=== PATIENT | female | born 1950 | race African-American/Black ===

== ENCOUNTER → 2017-01-22 | Outpatient (CLI) | payer MEDICARE, OTHER ==
[~2017-01-22] MED LIST: AMLO5TAB2 PO; DOCU-94 PO; FER325T PO; FLU05NSL; HYDR12.56 PO; LISI40TA PO; PANT40TA2 PO
[2017-01-22 08:17] LABS: Basophils # (auto) 0 uL; Basophils % (auto) 0.6 % (0.0-2.0); DEFINITIVE VIEW TRANSMISSION; Eosinophils # (auto) 0 uL; Eosinophils % (auto) 0.9 % (0.0-7.0); Hematocrit 39.4 % (36.0-46.0); Hemoglobin 12.6 g/dL (12.2-16.2); Lymphocytes # (auto) 1.1 uL; Lymphocytes % (auto) 40.6 % (10.0-50.0); Mean Corpuscular Hemoglobin 23.4 pg (28.0-32.0); Mean Corpuscular Hgb Conc. 31.9 g/dL (32.0-36.0); Mean Corpuscular Volume 73.4 fL (80.0-100.0); Mean Platelet Volume 9.5 fL (7.4-10.4); Monocytes # (auto) 0.2 uL; Monocytes % (auto) 6.8 % (0.0-12.0); Neutrophils # (auto) 1.4 uL; Neutrophils % (auto) 51.1 % (37.0-80.0); Platelet Count (auto) 297 10^3/uL (140-450); SUSPECT VIEW TRANSMISSION; White Blood Cell 2.7 10^3/uL (4.4-10.8)
[2017-01-22 08:24] LABS: Red Cell Distribution Width 20.1 % (11.6-16.0)
[2017-01-22 08:26] LABS: Urine Bilirubin Negative (Negative); Urine Blood Negative /uL (Negative); Urine Color Yellow (Yellow); Urine Glucose Normal (Normal); Urine Ketone Negative (Negative); Urine Mucus FEW (None Seen); Urine Nitrite Negative (Negative); Urine RBC 1 /hpf (0 - 4); Urine Squamous Epithelial Cell FEW /hpf (<5); Urine Urobilinogen Normal (Negative)
[2017-01-22 08:53] LABS: Albumin 3.8 g/dL (3.4-5.0); BUN/Creatinine Ratio 27.3; Bilirubin, Total 0.4 mg/dL (0.2-1.0); Potassium 3.9 mmol/L (3.5-5.1); Total Protein 7.8 g/dL (6.4-8.2)
[2017-01-22 08:54] LABS: Platelet Estimate Adequate
[2017-01-22 08:55] LABS: Anisocytosis Slight; Hypochromia Moderate; Microcytosis Slight
== END | disposition home or self-care (01) ==
LOC: LAB 07:52
PROVIDERS: ATTEND Internal Medicine
DX: Z00.00 Encounter for general adult medical examination without abnormal findings (principal); I10 Essential (primary) hypertension; E78.5 Hyperlipidemia, unspecified; E55.9 Vitamin D deficiency, unspecified
CPT/HCPCS: 36415; 80053; 80061; 81001; 82306; 84439; 84443; 85025

== ENCOUNTER → 2017-08-27 | Outpatient (CLI) | payer MEDICARE, OTHER | END | disposition home or self-care (01) | LOC: LAB 07:36 | PROVIDERS: ATTEND Internal Medicine Rheumatology | DX: M15.0 Primary generalized (osteo)arthritis (principal); I10 Essential (primary) hypertension | CPT/HCPCS: 36415; 85652; 86141 ==

== ENCOUNTER → 2017-12-16 | Outpatient (CLI) | payer MEDICARE, OTHER ==
[2017-12-16 08:24] LABS: Basophils # (auto) 0 uL; Eosinophils # (auto) 0 uL; Lymphocytes # (auto) 1.2 uL; Monocytes # (auto) 0.2 uL; Neutrophils # (auto) 1.3 uL
[2017-12-16 08:26] LABS: Eosinophils % (auto) 1.1 % (0.0-7.0); Hematocrit 43.1 % (36.0-46.0); Hemoglobin 14.3 g/dL (12.2-16.2); Lymphocytes % (auto) 42.7 % (10.0-50.0); Mean Corpuscular Hemoglobin 26.3 pg (28.0-32.0); Mean Corpuscular Hgb Conc. 33.3 g/dL (32.0-36.0); Monocytes % (auto) 7.4 % (0.0-12.0); Neutrophils % (auto) 47.8 % (37.0-80.0); Nucleated Red Blood Cells % 0.1 %; Platelet Count (auto) 257 10^3/uL (140-450); Red Blood Cells 5.45 10^6/uL (4.0-5.20); Red Cell Distribution Width 18.7 % (11.8-14.3); White Blood Cell 2.8 10^3/uL (4.4-10.8)
[2017-12-16 08:59] LABS: Albumin 4.2 g/dL (3.4-5.0); BUN/Creatinine Ratio 23.4; Bilirubin, Total 0.5 mg/dL (0.2-1.0); Calcium 9.1 mg/dL (8.5-10.1); Magnesium 2.2 mg/dL (1.6-2.6); Potassium 4.6 mmol/L (3.5-5.1); Total Protein 8.2 g/dL (6.4-8.2)
== END | disposition home or self-care (01) ==
LOC: LAB 07:59
PROVIDERS: ATTEND Physician Assistant
DX: I10 Essential (primary) hypertension (principal); D64.9 Anemia, unspecified; K29.70 Gastritis, unspecified, without bleeding; K21.9 Gastro-esophageal reflux disease without esophagitis
CPT/HCPCS: 36415; 80053; 80061; 83735; 85025

== ENCOUNTER → 2019-03-06 | Outpatient (CLI) | payer MEDICARE, OTHER ==
[~2019-03-06] MED LIST changes: +AMLO5TAB13 PO; -AMLO5TAB2 PO
[2019-03-06 08:10] LABS: Basophils # (auto) 0 uL; Basophils % (auto) 0.4 % (0.0-2.0); Eosinophils # (auto) 0 uL; Eosinophils % (auto) 0.3 % (0.0-7.0); Hematocrit 42.9 % (36.0-46.0); Hemoglobin 13.9 g/dL (12.2-16.2); Lymphocytes # (auto) 1.6 uL; Lymphocytes % (auto) 39.2 % (10.0-50.0); Mean Corpuscular Hgb Conc. 32.4 g/dL (32.0-36.0); Mean Corpuscular Volume 83.3 fL (80.0-100.0); Monocytes # (auto) 0.3 uL; Monocytes % (auto) 6.9 % (0.0-12.0); Neutrophils # (auto) 2.1 uL; Neutrophils % (auto) 53.2 % (37.0-80.0); Nucleated Red Blood Cells % 0.2 %; Platelet Count (auto) 280 10^3/uL (140-450); Red Blood Cells 5.15 10^6/uL (4.0-5.20)
[2019-03-06 08:24] LABS: Red Cell Distribution Width 20.9 % (11.8-14.3)
[2019-03-06 08:25] LABS: Albumin 3.8 g/dL (3.4-5.0); Calcium 9.1 mg/dL (8.5-10.1); Magnesium 2.5 mg/dL (1.6-2.6)
[2019-03-06 08:29] LABS: BUN/Creatinine Ratio 20.3; Bilirubin, Total 0.4 mg/dL (0.2-1.0); Total Protein 7.1 g/dL (6.4-8.2)
== END | disposition home or self-care (01) ==
LOC: LAB 07:43
PROVIDERS: ATTEND Physician Assistant
DX: D64.9 Anemia, unspecified (principal); I10 Essential (primary) hypertension; M06.9 Rheumatoid arthritis, unspecified; E61.2 Magnesium deficiency
CPT/HCPCS: 36415; 80053; 80061; 83735; 85025

== ENCOUNTER → 2019-05-04 | Outpatient (CLI) | payer MEDICARE, OTHER ==
[~2019-05-04] MED LIST changes: -AMLO5TAB13 PO; +AMLO5TAB15 PO
== END | disposition home or self-care (01) ==
LOC: LAB 13:53
PROVIDERS: ATTEND Nurse Practitioner Family
DX: L02.91 Cutaneous abscess, unspecified (principal)
CPT/HCPCS: 87070

== ENCOUNTER → 2019-09-11 | Outpatient (CLI) | payer MEDICARE, OTHER ==
[~2019-09-11] MED LIST changes: +IBUP800T24 PO; +TRAM-297 PO
[2019-09-11 08:34] LABS: Basophils # (auto) 0 uL; Basophils % (auto) 1.9 % (0.0-2.0); Eosinophils # (auto) 0.1 uL; Eosinophils % (auto) 3.6 % (0.0-7.0); Hematocrit 39.7 % (36.0-46.0); Hemoglobin 13.1 g/dL (12.2-16.2); Lymphocytes # (auto) 1.2 uL; Lymphocytes % (auto) 47.9 % (10.0-50.0); Mean Corpuscular Hemoglobin 27.2 pg (28.0-32.0); Mean Corpuscular Hgb Conc. 33.1 g/dL (32.0-36.0); Mean Corpuscular Volume 82.2 fL (80.0-100.0); Monocytes # (auto) 0.2 uL; Monocytes % (auto) 6.5 % (0.0-12.0); Neutrophils % (auto) 40.1 % (37.0-80.0); Nucleated Red Blood Cells % 0.1 %; Platelet Count (auto) 294 10^3/uL (140-450); Red Blood Cells 4.83 10^6/uL (4.0-5.20); Red Cell Distribution Width 18.9 % (11.8-14.3); White Blood Cell 2.4 10^3/uL (4.4-10.8)
[2019-09-11 08:35] LABS: Urine Blood Negative /uL (Negative); Urine Specific Gravity 1.011 (1.001-1.035)
[2019-09-11 09:29] LABS: INR 1.01 (0.9-1.15); Partial Thromboplastin Time 28.4 sec (23.64-32.05)
[2019-09-11 09:33] LABS: Albumin 3.7 g/dL (3.4-5.0); BUN/Creatinine Ratio 21.7; Bilirubin, Total 0.5 mg/dL (0.2-1.0); Calcium 9.2 mg/dL (8.5-10.1); Total Protein 7.8 g/dL (6.4-8.2)
[2019-09-11 09:48] LABS: Potassium 2.9 mmol/L (3.5-5.1)
== END | disposition home or self-care (01) ==
LOC: LAB 08:22
PROVIDERS: ATTEND Physician Assistant
DX: Z01.818 Encounter for other preprocedural examination (principal); I10 Essential (primary) hypertension; R06.02 Shortness of breath; Z79.899 Other long term (current) drug therapy
CPT/HCPCS: 36415; 80053; 81003; 83036; 85025; 85610; 85730

== ENCOUNTER → 2020-02-06 | Outpatient (CLI) | payer MEDICARE, OTHER ==
[~2020-02-06] MED LIST changes: +AMLO10TA13 PO; +ASPI-498 PO; +DICL1GEL50 TD; -DOCU-94 PO; +DOCU100C8 PO; +FERR-7 PO; -FLU05NSL; +FOLI1TAB6 PO; +GOLI50SO IV; +LISI-646 PO; -LISI40TA PO; +LISI40TA11 PO; +METH2.5T PO; +PANT40T PO; +PREG50CA PO; +TIZA4CAP PO
[2020-02-06 07:54] LABS: Urine Bacteria None Seen /hpf (None Seen)
[2020-02-06 08:01] LABS: Basophils % (auto) 0.6 % (0.0-2.0); Eosinophils # (auto) 0 10 ^3/uL (0-0.8); Eosinophils % (auto) 0.5 % (0.0-7.0); Lymphocytes # (auto) 1.3 10 ^3/uL (0.4-5.4); Lymphocytes % (auto) 43.2 % (10.0-50.0); Monocytes # (auto) 0.2 10 ^3/uL (0-1.3); Monocytes % (auto) 8.1 % (0.0-12.0); Neutrophils # (auto) 1.4 10 ^3/uL (1.6-8.6); Neutrophils % (auto) 47.6 % (37.0-80.0); Nucleated Red Blood Cells % 0.2 %
[2020-02-06 08:02] LABS: Basophils # (auto) 0 10 ^3/uL (0-0.2); Hematocrit 41.2 % (36.0-46.0); Hemoglobin 13.2 g/dL (12.2-16.2); Mean Corpuscular Hemoglobin 26.8 pg (28.0-32.0); Mean Corpuscular Hgb Conc. 32.2 g/dL (32.0-36.0); Mean Corpuscular Volume 83.5 fL (80.0-100.0); Platelet Count (auto) 269 10^3/uL (140-450); Red Blood Cells 4.93 10^6/uL (4.0-5.20); Red Cell Distribution Width 19.6 % (11.8-14.3)
[2020-02-06 08:04] LABS: Anion Gap 2 (5-15); Blood Urea Nitrogen 15 mg/dL (7-18); Carbon Dioxide 28 mmol/L (21-32); Chloride 106 mmol/L (98-107); Glucose 104 mg/dL (74-106); Potassium 3.8 mmol/L (3.5-5.1); Sodium 136 mmol/L (136-145)
[2020-02-06 08:05] LABS: Alanine Aminotransferase 45 U/L (13-56); Albumin 3.9 g/dL (3.4-5.0); Alkaline Phosphatase 48 U/L (45-117); Aspartate Aminotransferase 28 U/L (15-37); BUN/Creatinine Ratio 21.7; Bilirubin, Total 0.5 mg/dL (0.2-1.0); Calcium 9.1 mg/dL (8.5-10.1); GFR African American 108 mL/min; GFR Non-African American 89 mL/min; Total Protein 7.7 g/dL (6.4-8.2)
[2020-02-06 08:08] LABS: INR 1.05 (0.9-1.15); Partial Thromboplastin Time 25.9 sec (23.64-32.05)
[2020-02-06 08:10] LABS: Urine Specific Gravity 1.023 (1.001-1.035); Urine WBC 1 /hpf (0 - 5)
[2020-02-06 08:11] LABS: Urine Mucus FEW (None Seen)
[2020-02-06 08:12] LABS: Urine Blood Negative /uL (Negative)
== END | disposition home or self-care (01) ==
LOC: LAB 07:46
PROVIDERS: ATTEND Physician Assistant
DX: Z01.818 Encounter for other preprocedural examination (principal); Z79.899 Other long term (current) drug therapy
CPT/HCPCS: 36415; 80053; 81001; 83036; 85025; 85610; 85730

== ENCOUNTER → 2020-02-14 | Outpatient (CLI) | payer MEDICARE, OTHER ==
[~2020-02-14] MED LIST changes: -AMLO10TA13 PO; -ASPI-498 PO; -DICL1GEL50 TD; -DOCU100C8 PO; -FERR-7 PO; -FOLI1TAB6 PO; -GOLI50SO IV; -LISI-646 PO; +LISI40TA PO; -LISI40TA11 PO; -PANT40T PO; -PREG50CA PO; -TIZA4CAP PO
== END | disposition home or self-care (01) ==
LOC: LAB 11:21
PROVIDERS: ATTEND Physician Assistant
DX: Z01.818 Encounter for other preprocedural examination (principal); Z79.899 Other long term (current) drug therapy
CPT/HCPCS: 87081; 87086

== ENCOUNTER → 2020-02-26 | Outpatient (CLI) | payer MEDICARE, BC ==
[~2020-02-26] MED LIST changes: +AMLO10TA13 PO; +ASPI-498 PO; +DICL1GEL50 TD; +DOCU100C8 PO; +FERR-7 PO; +FOLI1TAB6 PO; +GOLI50SO IV; +LISI-646 PO; -LISI40TA PO; +LISI40TA11 PO; +PANT40T PO; +PREG50CA PO; +TIZA4CAP PO
== END | disposition home or self-care (01) ==
LOC: Rad HDHVI 15:59
PROVIDERS: ATTEND Internal Medicine Cardiovascular Disease
DX: I10 Essential (primary) hypertension (principal); R06.02 Shortness of breath
CPT/HCPCS: 93306

== ENCOUNTER → 2020-03-07 | Outpatient (CLI) | payer MEDICARE, BC ==
[~2020-03-07] VITALS: Ht 160 cm; Wt 54.0 kg
[~2020-03-07] MED LIST changes: +ADENOSINE 45 MG in GIVE UN-DILUTED 0 ML IV ONE; +ADENOSINE 90 MG/30 ML INJ IV ONE; -AMLO10TA13 PO; -ASPI-498 PO; -DICL1GEL50 TD; -DOCU100C8 PO; -FERR-7 PO; -FOLI1TAB6 PO; -GOLI50SO IV; -LISI-646 PO; +LISI40TA PO; -LISI40TA11 PO; -METH2.5T PO; +METH2.5T3 PO; -PANT40T PO; -PREG50CA PO; -TIZA4CAP PO
== END | disposition home or self-care (01) ==
LOC: Rad HDHVI 08:40
PROVIDERS: ATTEND Internal Medicine Cardiovascular Disease
DX: Z01.810 Encounter for preprocedural cardiovascular examination (principal); I10 Essential (primary) hypertension; R94.31 Abnormal electrocardiogram [ECG] [EKG]; Z82.49 Family history of ischemic heart disease and other diseases of the circulatory system
CPT/HCPCS: 78452; 93005; 96374; 96375; A9500; J0153

== ENCOUNTER 2020-05-13 12:30 | Inpatient (IN) | payer MEDICARE, BC ==
[~2020-05-13] VITALS: Ht 162.6 cm; Wt 55.6 kg
[~2020-05-13 12:30] MED LIST changes: -ADENOSINE 45 MG in GIVE UN-DILUTED 0 ML IV ONE; -ADENOSINE 90 MG/30 ML INJ IV ONE; -LISI40TA PO; +LISI40TA11 PO; +METH2.5T PO; -METH2.5T3 PO
[2020-05-13] MEDS ORDERED: SODIUM CHLORIDE 0.9% 1,000 ML IV ONE (12:38)
[2020-05-13] MEDS ORDERED: IOHEXOL 350 MG/ML 100ML IJ ONE (12:47)
[2020-05-13 13:06] LABS: Basophils # (auto) 0 10 ^3/uL (0-0.2); Eosinophils # (auto) 0 10 ^3/uL (0-0.8); Lymphocytes # (auto) 0.8 10 ^3/uL (0.4-5.4); Monocytes # (auto) 0.2 10 ^3/uL (0-1.3); Neutrophils % (auto) 75.3 % (37.0-80.0)
[2020-05-13 13:08] LABS: Eosinophils % (auto) 0.7 % (0.0-7.0); Hematocrit 19.9 % (36.0-46.0); Lymphocytes % (auto) 19.2 % (10.0-50.0); Mean Corpuscular Hemoglobin 27.9 pg (28.0-32.0); Mean Corpuscular Hgb Conc. 30.8 g/dL (32.0-36.0); Mean Corpuscular Volume 90.5 fL (80.0-100.0); Monocytes % (auto) 3.8 % (0.0-12.0); Neutrophils # (auto) 3.1 10 ^3/uL (1.6-8.6); Nucleated Red Blood Cells % 0.3 %; Platelet Count (auto) 374 10^3/uL (140-450); White Blood Cell 4.1 10^3/uL (4.4-10.8)
[2020-05-13 13:13] LABS: Hemoglobin 6.1 g/dL (12.2-16.2); Red Cell Distribution Width 21.5 % (11.8-14.3)
[2020-05-13 13:23] LABS: Alanine Aminotransferase 43 U/L (13-56); Albumin 3.1 g/dL (3.4-5.0); Anion Gap 6 (5-15); Aspartate Aminotransferase 19 U/L (15-37); BUN/Creatinine Ratio 14.8; Blood Urea Nitrogen 17 mg/dL (7-18); Calcium 8.4 mg/dL (8.5-10.1); Carbon Dioxide 24 mmol/L (21-32); Chloride 110 mmol/L (98-107); GFR African American 60 mL/min; GFR Non-African American 49 mL/min; Glucose 140 mg/dL (74-106); Potassium 3.7 mmol/L (3.5-5.1); Sodium 140 mmol/L (136-145)
[2020-05-13 13:27] LABS: Alkaline Phosphatase 52 U/L (45-117); Bilirubin, Total 0.3 mg/dL (0.2-1.0); Total Protein 6.6 g/dL (6.4-8.2)
[2020-05-13] MEDS ORDERED: ACETAMINOPHEN 325 MG TAB PO PRN (15:30)
[2020-05-13] MEDS ORDERED: ONDANSETRON HCL 4 MG/2 ML VIAL IV PRN (15:30)
[2020-05-13] MEDS ORDERED: LORazepam 0.5 MG TAB PO PRN (15:30)
[2020-05-13] MEDS ORDERED: MORPHINE SULF INJ 2 MG/ML SYRINGE 1ML IV PRN ×2 (15:30)
[2020-05-13] MEDS ORDERED: LISINOPRIL 10 MG TAB PO ONE (15:30)
[2020-05-13] MEDS ORDERED: ALUM & MAG HYDROX-SIMETH LIQ(MAALOX) 30 ML PO PRN (15:30)
[2020-05-13] MEDS ORDERED: DOCUSATE SOD 100 MG CAP PO PRN (15:30)
[2020-05-13] MEDS ORDERED: hydrALAZINE HCL 20 MG/ML VL IV PRN (15:30)
[2020-05-13] MEDS ORDERED: NITROGLYCERIN 0.4 MG SL TAB SL PRN (15:30)
[2020-05-13] MEDS: SODIUM CHLORIDE 0.9% 1,000 ML IV SCH (15:44)
[2020-05-13 16:48] LABS: % Iron Saturation 5.4 % (15-50)
[2020-05-13] MEDS: FERROUS SULFATE 325 MG TAB PO SCH (17:05)
[2020-05-13 18:11] LABS: Urine Bacteria NONE SEEN /hpf (None Seen); Urine Blood Negative /uL (Negative); Urine Mucus FEW (None Seen); Urine WBC 6 /hpf (0 - 5)
[2020-05-13 18:17] LABS: Urine Specific Gravity > 1.050 (1.001-1.035)
[2020-05-13 18:23] LABS: Alcohol, Urine < 3.0 mg/dL (0-10); Amphetamine Screen, Urine NEGATIVE (NEGATIVE); Barbiturate Scree,Urine NEGATIVE (NEGATIVE); Benzodiazephine Screen, Urine NEGATIVE (NEGATIVE); Cannabinoid Screen, Urine NEGATIVE (NEGATIVE); Cocaine Screen, Urine NEGATIVE (NEGATIVE); Opiate Scree,Urine NEGATIVE (NEGATIVE); Phencyclidine Screen, Urine NEGATIVE (NEGATIVE)
[2020-05-13] MEDS ORDERED: cefTRIAXone 1GM/50ML D5W 50 ML IV ONE (18:45)
[2020-05-13] MEDS ORDERED: SODIUM FERR GLUC 62.5MG/5ML 125 MG in SODIUM CHL 0.9% 100 ML IV ONE (18:45)
[2020-05-13] MEDS ORDERED: LISI-646 PO (19:17)
[2020-05-13] MEDS ORDERED: FOLI1TAB6 PO (19:17)
[2020-05-13] MEDS ORDERED: AMLO10TA13 PO (19:17)
[2020-05-13] MEDS ORDERED: PREG50CA PO (19:19)
[2020-05-13] MEDS ORDERED: TIZA4CAP PO (19:19)
[2020-05-13] MEDS ORDERED: GOLI50SO IV (19:19)
[2020-05-13] MEDS ORDERED: ASPI-498 PO (19:19)
[2020-05-13] MEDS ORDERED: DICL1GEL50 TD (19:24)
[2020-05-13] MEDS ORDERED: DOCU100C8 PO (19:24)
--- NOTE | 2020-05-13 20:55 | NUR ---
Telemetry admit from ER ROSALIESTEVENLUANA admitted to Telemetry unit. Patient oriented to SWATHI ORANTES, primary RN, unit, room, bed, and unit policies regarding patient care and visiting hours. Patient now on continuous telemetry monitoring, tele box # [id number] and telemetry reading on arrival to unit is NSR 79 . Patient weighed by bed scale and encouraged to call if they need something. All questions and concerns addressed, patient verbalized understanding.
[2020-05-13 21:45] VITALS: BP 130/56
--- NOTE | 2020-05-13 21:57 | NUR ---
Blood transfusion started.
[2020-05-13 22:00] VITALS: BP 130/56
[2020-05-13 22:27] VITALS: BP 128/55
[2020-05-13] MEDS: GABAPENTIN 300 MG CAP PO SCH (22:38)
[2020-05-13] MEDS: PANTOPRAZOLE 40 MG TAB PO SCH (22:38)
[2020-05-14 01:03] VITALS: BP 130/67
[2020-05-14 05:00] VITALS: BP 115/54
[2020-05-14] MEDS: GABAPENTIN 300 MG CAP PO SCH ×3 (05:58→21:34)
[2020-05-14 07:08] LABS: Hemoglobin 7.7 g/dL (12.2-16.2)
[2020-05-14 07:12] LABS: Hematocrit 23.5 % (36.0-46.0)
--- NOTE | 2020-05-14 07:15 | NUR ---
Opening shift note Assumed care patient sleeping in bed. Respirations even and unlabored currently on room air. Bed in low position, locked, call light within reach.
[2020-05-14 09:00] VITALS: BP 130/62
[2020-05-14] MEDS: predniSONE 5 MG TAB PO SCH (09:32)
[2020-05-14] MEDS: FERROUS SULFATE 325 MG TAB PO SCH (09:32)
[2020-05-14] MEDS: LISINOPRIL 10 MG TAB PO SCH (09:33)
[2020-05-14] MEDS: amLODIPine BESYLATE 5 MG TAB PO SCH (09:33)
[2020-05-14] MEDS: PANTOPRAZOLE 40 MG TAB PO SCH ×2 (09:33→21:34)
[2020-05-14] MEDS: SODIUM CHLORIDE 0.9% 1,000 ML IV SCH (09:34)
[2020-05-14] MEDS ORDERED: PANTOPRAZOLE 40 MG TAB PO SCH (10:00)
[2020-05-14] MEDS ORDERED: LACTULOSE 20Gm/30ML SOLN PO PRN (10:30)
[2020-05-14] MEDS: SODIUM FERR GLUC 62.5MG/5ML 125 MG in SODIUM CHL 0.9% 100 ML IV SCH (12:00)
[2020-05-14] MEDS ORDERED: IRON SUCROSE COMPLEX 200 MG in SODIUM CHL 0.9% 100 ML IV SCH (12:00)
--- NOTE | 2020-05-14 12:20 | NUR ---
Missed medication Patient refusing scheduled 1200 Ferrlecit at this time as patient states it made her "sick to her stomach" when she had received it previously. Patient educated on benefits of medication, patient continues to refuse and states she will let me know if she changes her mind.
[2020-05-14 13:00] VITALS: BP 124/67
[2020-05-14 14:35] LABS: INR 1.05 (0.9-1.15); Partial Thromboplastin Time 22.9 sec (23.0-31.2)
[2020-05-14 17:00] VITALS: BP 127/63
--- NOTE | 2020-05-14 18:00 | NUR ---
Covid swab collected at this time.
--- NOTE | 2020-05-14 19:13 | NUR ---
Closing shift note/ endorse Pending signature of consents for EGD that will be performed on 05/15/20. Procedure explained to patient by Dr. King at bedside. Will endorse obtaining signature of consents and checlist to [facility] nurse Arevalo.
[2020-05-14] MEDS ORDERED: cefTRIAXone 1GM/50ML D5W 50 ML IV SCH (21:00)
--- NOTE | 2020-05-14 21:43 | NUR ---
[place] 5/325 i po given for sheyla moderate pain in medial L knee. Pt kept hinting she wanted tramadol or another medication, but took this med.
[2020-05-14] MEDS: HYDROcodone-ACET 5/325MG TAB PO PRN (21:46)
[2020-05-14 22:18] VITALS: BP 118/58
[2020-05-15 04:57] VITALS: BP 121/60
[2020-05-15] MEDS: GABAPENTIN 300 MG CAP PO SCH ×2 (05:39→14:34)
[2020-05-15 05:40] LABS: Basophils # (auto) 0 10 ^3/uL (0-0.2); Eosinophils # (auto) 0.1 10 ^3/uL (0-0.8); Hematocrit 22.9 % (36.0-46.0); Hemoglobin 7.5 g/dL (12.2-16.2); Mean Corpuscular Hemoglobin 29.3 pg (28.0-32.0); Mean Corpuscular Volume 90.1 fL (80.0-100.0); Monocytes # (auto) 0.3 10 ^3/uL (0-1.3); White Blood Cell 5.5 10^3/uL (4.4-10.8)
[2020-05-15 05:42] LABS: Basophils % (auto) 0.5 % (0.0-2.0); Eosinophils % (auto) 2.1 % (0.0-7.0); Lymphocytes # (auto) 1.2 10 ^3/uL (0.4-5.4); Lymphocytes % (auto) 22.3 % (10.0-50.0); Mean Corpuscular Hgb Conc. 32.6 g/dL (32.0-36.0); Monocytes % (auto) 5.4 % (0.0-12.0); Neutrophils # (auto) 3.9 10 ^3/uL (1.6-8.6); Neutrophils % (auto) 69.7 % (37.0-80.0); Nucleated Red Blood Cells % 1.3 %; Platelet Count (auto) 318 10^3/uL (140-450); Red Blood Cells 2.54 10^6/uL (4.0-5.20)
[2020-05-15 05:59] LABS: Potassium 3.8 mmol/L (3.5-5.1)
[2020-05-15 06:04] LABS: BUN/Creatinine Ratio 23.9; Calcium 8.1 mg/dL (8.5-10.1)
[2020-05-15] MEDS ORDERED: SODIUM CHLORIDE LOCK 10 ML ONE (09:08)
[2020-05-15] MEDS ORDERED: diphenhdrAMINE HCL 50 MG/1 ML VL ONE (09:09)
[2020-05-15] MEDS ORDERED: LIDOCAINE VISCOUS 2% 15ML UD ONE (09:09)
[2020-05-15 09:30] VITALS: BP 128/63
[2020-05-15] MEDS: MIDAZOLAM HCL 5 MG/ML-1ML VIAL ONE ×2 (09:47→09:51)
[2020-05-15] MEDS: fentaNYL CITRATE 100 MCG/2 ML VL ONE (09:47)
[2020-05-15] MEDS: amLODIPine BESYLATE 5 MG TAB PO SCH (10:00)
[2020-05-15] MEDS: PANTOPRAZOLE 40 MG TAB PO SCH (10:00)
[2020-05-15] MEDS: LISINOPRIL 10 MG TAB PO SCH (10:00)
[2020-05-15 13:00] VITALS: BP 128/59
[2020-05-15] MEDS: HYDROcodone-ACET 5/325MG TAB PO PRN (14:34)
[2020-05-15] MEDS: predniSONE 5 MG TAB PO SCH (14:34)
[2020-05-15] MEDS: SODIUM FERR GLUC 62.5MG/5ML 125 MG in SODIUM CHL 0.9% 100 ML IV SCH (15:24)
[2020-05-15] MEDS ORDERED: PANT40T PO (15:25)
[2020-05-15] MEDS ORDERED: FERR-7 PO (15:25)
[2020-05-15 15:47] VITALS: BP 130/62
[2020-05-16] MEDS: fentaNYL CITRATE 100 MCG/2 ML VL ONE (09:51)
[2020-05-17] MEDS ORDERED: METHOTREXATE 2.5 MG TAB PO SCH ×2 (08:00→18:00)
== END 2020-05-15 16:35 | disposition home or self-care (01) | DRG 378 ==
LOC: EDBD 12:30 → ER 12:30 → TELE 12:31 → TELE-WESTW 20:55
PROVIDERS: ADMIT Hospitalist; ATTEND Internal Medicine Nephrology
PROC: 30233N1 Transfusion of Nonautologous Red Blood Cells into Peripheral Vein, Percutaneous Approach (ICD-10-PCS; principal; 2020-05-13)
PROC: 0DB68ZX Excision of Stomach, Via Natural or Artificial Opening Endoscopic, Diagnostic (ICD-10-PCS; 2020-05-15)
DX: K25.4 Chronic or unspecified gastric ulcer with hemorrhage (principal); D62 Acute posthemorrhagic anemia; E44.0 Moderate protein-calorie malnutrition; Z68.1 Body mass index [BMI] 19.9 or less, adult; M06.9 Rheumatoid arthritis, unspecified; M85.80 Other specified disorders of bone density and structure, unspecified site; G62.9 Polyneuropathy, unspecified; I10 Essential (primary) hypertension; K44.9 Diaphragmatic hernia without obstruction or gangrene; F41.9 Anxiety disorder, unspecified; D50.9 Iron deficiency anemia, unspecified; M19.90 Unspecified osteoarthritis, unspecified site; K31.4 Gastric diverticulum; Z96.659 Presence of unspecified artificial knee joint; Z20.828 Contact with and (suspected) exposure to other viral communicable diseases
CPT/HCPCS: 36415; 43239; 71275; 80048; 80053; 80061; 80307; 81001; 83036; 83540; 83550; 83880; 84484; 85014; 85018; 85025; 85379; 85610; 85730; 86850; 86900; 86901; 86920; 87040; 87086; 87426; 97163; G0378; J0696; J2250

== ENCOUNTER → 2020-05-30 | Outpatient (CLI) | payer MEDICARE, BC ==
[~2020-05-30] MED LIST changes: +AMLO10TA13 PO; -AMLO5TAB15 PO; +DICL1GEL50 TD; +DOCU100C8 PO; -FER325T PO; +FERR-7 PO; +FOLI1TAB6 PO; +GOLI50SO IV; -IBUP800T24 PO; +LISI-646 PO; -LISI40TA11 PO; +PANT40T PO; -PANT40TA2 PO; +PREG50CA PO; +TIZA4CAP PO
[2020-05-30 11:15] LABS: Basophils # (auto) 0 10 ^3/uL (0-0.2); Basophils % (auto) 1.1 % (0.0-2.0); Eosinophils # (auto) 0 10 ^3/uL (0-0.8); Eosinophils % (auto) 0.8 % (0.0-7.0); Hematocrit 34.7 % (36.0-46.0); Lymphocytes # (auto) 0.8 10 ^3/uL (0.4-5.4); Lymphocytes % (auto) 26.6 % (10.0-50.0); Mean Corpuscular Hemoglobin 28.1 pg (28.0-32.0); Mean Corpuscular Hgb Conc. 31.8 g/dL (32.0-36.0); Mean Corpuscular Volume 88.4 fL (80.0-100.0); Monocytes # (auto) 0.2 10 ^3/uL (0-1.3); Monocytes % (auto) 6.6 % (0.0-12.0); Neutrophils % (auto) 64.9 % (37.0-80.0); Nucleated Red Blood Cells % 0.1 %; Platelet Count (auto) 322 10^3/uL (140-450); Red Blood Cells 3.92 10^6/uL (4.0-5.20); Red Cell Distribution Width 19.1 % (11.8-14.3); White Blood Cell 3.1 10^3/uL (4.4-10.8)
[2020-05-30 11:52] LABS: Magnesium 2.3 mg/dL (1.6-2.6); Potassium 3.3 mmol/L (3.5-5.1)
[2020-05-30 12:10] LABS: Albumin 3.5 g/dL (3.4-5.0); BUN/Creatinine Ratio 18.9; Bilirubin, Total 0.3 mg/dL (0.2-1.0); Calcium 9.2 mg/dL (8.5-10.1)
== END | disposition home or self-care (01) ==
LOC: LAB 10:49
PROVIDERS: ATTEND Physician Assistant
DX: I10 Essential (primary) hypertension (principal); I07.1 Rheumatic tricuspid insufficiency; D64.9 Anemia, unspecified; D50.9 Iron deficiency anemia, unspecified; E78.5 Hyperlipidemia, unspecified; E61.2 Magnesium deficiency
CPT/HCPCS: 36415; 80053; 80061; 83735; 85025

== ENCOUNTER → 2020-09-09 | Outpatient (CLI) | payer MEDICARE, BC ==
[2020-09-09 12:29] LABS: Urine Blood Negative /uL (Negative); Urine Specific Gravity 1.023 (1.001-1.035)
== END | disposition home or self-care (01) ==
LOC: LAB 10:25
PROVIDERS: ATTEND Internal Medicine Cardiovascular Disease
DX: N39.0 Urinary tract infection, site not specified (principal)
CPT/HCPCS: 81003

== ENCOUNTER 2020-10-20 10:02 | Inpatient (IN) | payer MEDICARE, OTHER ==
[~2020-10-20] VITALS: Ht 162.6 cm; Wt 56.5 kg
[~2020-10-20 10:02] MED LIST changes: +AMLO-496 PO; -AMLO10TA13 PO; +DOCU100C10 PO; -DOCU100C8 PO
[2020-10-20 11:08] LABS: Hemoglobin 12.7 g/dL (12.2-16.2)
[2020-10-20 11:11] LABS: Hematocrit 38.1 % (36.0-46.0); Mean Corpuscular Hemoglobin 28.2 pg (28.0-32.0); Mean Corpuscular Hgb Conc. 33.5 g/dL (32.0-36.0); Mean Corpuscular Volume 84.3 fL (80.0-100.0); Platelet Count (auto) 204 10^3/uL (140-450); Red Blood Cells 4.52 10^6/uL (4.0-5.20)
[2020-10-20 11:17] LABS: Red Cell Distribution Width 20.9 % (11.8-14.3)
[2020-10-20 11:18] LABS: White Blood Cell 1.6 10^3/uL (4.4-10.8)
[2020-10-20 11:19] LABS: Band Neutrophils % (manual) 0; Basophils % (manual) 0 (0.0-2.0); Blast Cells 0; Eosinophils % (manual) 0 (0-7); Myelocytes % 0; Promyelocytes % 0; Reactive Lymphocytes 0
[2020-10-20 11:27] LABS: Potassium 3.2 mmol/L (3.5-5.1)
[2020-10-20 11:39] LABS: Albumin 3.8 g/dL (3.4-5.0); BUN/Creatinine Ratio 27.1; Bilirubin, Total 0.4 mg/dL (0.2-1.0); Calcium 8.6 mg/dL (8.5-10.1); Magnesium 2.4 mg/dL (1.6-2.6); Total Protein 7.6 g/dL (6.4-8.2)
[2020-10-20 11:40] LABS: INR 1.03 (0.9-1.15)
[2020-10-20] MEDS ORDERED: POTASSIUM EFFERVESENT TAB 25 MEQ PO ONE (13:45)
[2020-10-20 14:38] LABS: Lymphocytes % (manual) 35 (10.0-50.0); Metamyelocytes % 1; Monocytes % (manual) 15 (0-12)
[2020-10-20 19:10] LABS: Basophils # (auto) 0 10 ^3/uL (0-0.2); Basophils % (auto) 1.2 % (0.0-2.0); Eosinophils # (auto) 0 10 ^3/uL (0-0.8); Eosinophils % (auto) 2.2 % (0.0-7.0); Hematocrit 37.6 % (36.0-46.0); Hemoglobin 12.1 g/dL (12.2-16.2); Lymphocytes % (auto) 47.7 % (10.0-50.0); Mean Corpuscular Hemoglobin 27.2 pg (28.0-32.0); Mean Corpuscular Hgb Conc. 32.3 g/dL (32.0-36.0); Mean Corpuscular Volume 84.4 fL (80.0-100.0); Monocytes # (auto) 0.4 10 ^3/uL (0-1.3); Monocytes % (auto) 16.5 % (0.0-12.0); Neutrophils # (auto) 0.7 10 ^3/uL (1.6-8.6); Neutrophils % (auto) 32.4 % (37.0-80.0); Nucleated Red Blood Cells % 0.3 %; Platelet Count (auto) 197 10^3/uL (140-450); Red Blood Cells 4.45 10^6/uL (4.0-5.20); Red Cell Distribution Width 20.2 % (11.8-14.3); White Blood Cell 2.2 10^3/uL (4.4-10.8)
[2020-10-20 19:23] LABS: INR 1.07 (0.9-1.15); Partial Thromboplastin Time 25.3 sec (23.0-31.2)
[2020-10-20 19:53] LABS: Albumin 3.3 g/dL (3.4-5.0); Calcium 8.2 mg/dL (8.5-10.1); Potassium 3.8 mmol/L (3.5-5.1)
[2020-10-20 19:58] LABS: BUN/Creatinine Ratio 24.6; Bilirubin, Total 0.2 mg/dL (0.2-1.0); Total Protein 6.8 g/dL (6.4-8.2)
[2020-10-21] VITALS (8 sets, daily range): BP systolic 134–168; BP diastolic 69–84
[2020-10-21] MEDS ORDERED: fentaNYL CITRATE 100 MCG/2 ML VL ONE (08:53)
[2020-10-21] MEDS ORDERED: MIDAZOLAM HCL 1MG/1ML-2 ML VIAL ONE (08:53)
[2020-10-21] MEDS ORDERED: MORPHINE SULF(PF) 0.5MG/ML 10ML VIAL ONE (08:53)
[2020-10-21] MEDS ORDERED: PROPOFOL 10 MG/ML 20 ML IV ONE (08:53)
[2020-10-21] MEDS ORDERED: ONDANSETRON HCL 4 MG/2 ML VIAL ONE (08:53)
[2020-10-21] MEDS ORDERED: SODIUM CHLORIDE LOCK 10 ML ONE (08:53)
[2020-10-21] MEDS: MORPHINE SULFATE 4 MG/ML SYR/VIAL IV PRN ×2 (09:07→23:13)
[2020-10-21] MEDS: ONDANSETRON HCL 4 MG/2 ML VIAL IV PRN ×2 (09:07→23:13)
[2020-10-21] MEDS ORDERED: ceFAZolin 1GM/50ML 50 ML IV ONE ×2 (09:16→09:17)
[2020-10-21] MEDS ORDERED: TRANEXAMIC ACID 20 ML ONE (09:21)
[2020-10-21] MEDS ORDERED: BUPIVACAINE HCL 0 ML ONE (09:21)
[2020-10-21] MEDS ORDERED: VANCOMYCIN HCL 1000 MG VL ONE (09:22)
[2020-10-21] MEDS ORDERED: BUPIVACAINE 0.25% INJ 50ML VIAL ONE (09:23)
[2020-10-21] MEDS ORDERED: TETRACAINE 1% INJ 2 ML VIAL IJ ONE (09:29)
[2020-10-21] MEDS ORDERED: KETOROLAC TROMETH 30 MG/ML 1ML VIAL ONE (09:43)
[2020-10-21] MEDS ORDERED: MORPHINE SULFATE 4 MG/ML SYR/VIAL IV PRN (11:15)
[2020-10-21] MEDS ORDERED: NALOXONE HCL 0.4 MG/ML VIAL IV PRN (11:15)
[2020-10-21] MEDS ORDERED: diphenhdrAMINE HCL 50 MG/1 ML VL IV PRN (11:15)
[2020-10-21] MEDS ORDERED: HYDROmorphone HCL 2 MG/ML VL IV PRN (11:15)
[2020-10-21] MEDS: ceFAZolin 1GM/50ML 50 ML IV SCH ×3 (12:30→23:56)
[2020-10-21] MEDS: LACTATED RINGER'S 1,000 ML IV SCH ×2 (12:30→23:09)
[2020-10-21] MEDS: SODIUM CHLOR 0.9% PF (SALINE LOCK) 10ML VIAL/SYR IV SCH ×2 (14:00→21:35)
[2020-10-21] MEDS ORDERED: LEFL20TA PO (18:53)
[2020-10-21] MEDS ORDERED: ALEN70TA2 PO (18:53)
[2020-10-22] VITALS (21 sets, daily range): BP systolic 123–152; BP diastolic 62–92
[2020-10-22 05:44] LABS: Hematocrit 36.1 % (36.0-46.0); Hemoglobin 11.8 g/dL (12.2-16.2)
[2020-10-22 06:06] LABS: Albumin 3.1 g/dL (3.4-5.0); Calcium 7.7 mg/dL (8.5-10.1)
[2020-10-22 06:10] LABS: BUN/Creatinine Ratio 16.7; Bilirubin, Total 0.4 mg/dL (0.2-1.0); Total Protein 6.5 g/dL (6.4-8.2)
[2020-10-22] MEDS: SODIUM CHLOR 0.9% PF (SALINE LOCK) 10ML VIAL/SYR IV SCH ×3 (06:34→22:24)
[2020-10-22] MEDS: MORPHINE SULFATE 4 MG/ML SYR/VIAL IV PRN ×2 (06:34→14:01)
[2020-10-22] MEDS: ONDANSETRON HCL 4 MG/2 ML VIAL IV PRN ×2 (06:34→14:01)
[2020-10-22] MEDS: LACTATED RINGER'S 1,000 ML IV SCH ×2 (08:30→18:26)
[2020-10-22] MEDS: ENOXAPARIN SOD 40 MG/0.4 ML SYRINGE SC SCH (09:35)
[2020-10-23 03:00] VITALS: BP 147/77
[2020-10-23] MEDS: MORPHINE SULFATE 4 MG/ML SYR/VIAL IV PRN ×3 (03:00→20:03)
[2020-10-23] MEDS: ONDANSETRON HCL 4 MG/2 ML VIAL IV PRN ×3 (03:00→20:03)
[2020-10-23] MEDS: LACTATED RINGER'S 1,000 ML IV SCH ×3 (04:21→23:58)
[2020-10-23] MEDS: SODIUM CHLOR 0.9% PF (SALINE LOCK) 10ML VIAL/SYR IV SCH ×3 (05:04→21:41)
[2020-10-23 06:57] LABS: Hematocrit 34.6 % (36.0-46.0); Hemoglobin 11.5 g/dL (12.2-16.2)
[2020-10-23 08:00] VITALS: BP 146/61
[2020-10-23] MEDS: ENOXAPARIN SOD 40 MG/0.4 ML SYRINGE SC SCH (09:49)
[2020-10-23] MEDS: levoFLOXacin 500 MG TAB PO SCH (09:49)
[2020-10-23 10:50] LABS: Urine Bacteria NONE SEEN /hpf (None Seen); Urine Blood TRACE /uL (Negative); Urine Mucus FEW (None Seen); Urine Specific Gravity 1.025 (1.001-1.035); Urine WBC 1 /hpf (0 - 5)
[2020-10-23 16:00] VITALS: BP 111/69
[2020-10-23 22:36] VITALS: BP 130/60
[2020-10-24 05:00] VITALS: BP 125/59
[2020-10-24] MEDS: SODIUM CHLOR 0.9% PF (SALINE LOCK) 10ML VIAL/SYR IV SCH (05:07)
[2020-10-24] MEDS: MORPHINE SULFATE 4 MG/ML SYR/VIAL IV PRN (05:13)
[2020-10-24] MEDS: ONDANSETRON HCL 4 MG/2 ML VIAL IV PRN (05:13)
[2020-10-24 05:58] LABS: Hematocrit 33.8 % (36.0-46.0); Hemoglobin 11.3 g/dL (12.2-16.2)
[2020-10-24 08:00] VITALS: BP 129/68
[2020-10-24] MEDS: levoFLOXacin 500 MG TAB PO SCH (09:46)
[2020-10-24] MEDS: ENOXAPARIN SOD 40 MG/0.4 ML SYRINGE SC SCH (09:46)
[2020-10-24] MEDS: LACTATED RINGER'S 1,000 ML IV SCH (10:30)
[2020-10-24 12:51] VITALS: BP 129/68
== END 2020-10-24 15:10 | disposition home health service (06) | DRG 470 ==
LOC: ER 10:02 → OVERFLOW 18:06 → TELE-CENTR 10-21 16:58
PROVIDERS: ADMIT Internal Medicine Cardiovascular Disease; ATTEND Internal Medicine Cardiovascular Disease
PROC: 0SRS0JZ Replacement of Left Hip Joint, Femoral Surface with Synthetic Substitute, Open Approach (ICD-10-PCS; principal; 2020-10-21 09:57)
DX: M16.12 Unilateral primary osteoarthritis, left hip (principal); I42.9 Cardiomyopathy, unspecified; K59.00 Constipation, unspecified; I10 Essential (primary) hypertension; Z20.822 Contact with and (suspected) exposure to COVID-19; G89.29 Other chronic pain; M06.9 Rheumatoid arthritis, unspecified; D72.819 Decreased white blood cell count, unspecified; K59.09 Other constipation; Z80.0 Family history of malignant neoplasm of digestive organs; Z82.49 Family history of ischemic heart disease and other diseases of the circulatory system; Z85.038 Personal history of other malignant neoplasm of large intestine
CPT/HCPCS: 36415; 71045; 72170; 72192; 73502; 80053; 81001; 83735; 84484; 84702; 85007; 85014; 85018; 85025; 85027; 85610; 85730; 86850; 86900; 86901; 87426; 93005; 97110; 97116; 97530; A4565; G0378; J0690; J1885; J2250; J2405; J2704; J3490

== ENCOUNTER 2020-11-02 09:21 | Inpatient (IN) | payer MEDICARE, OTHER ==
[~2020-11-02] VITALS: Ht 162.6 cm; Wt 55.8 kg
[~2020-11-02 09:21] MED LIST changes: +ALEN70TA2 PO; +LEFL20TA PO; -METH2.5T PO
[2020-11-02] MEDS ORDERED: CARISOPRODOL 350 MG TAB PO ONE (10:00)
[2020-11-02 10:25] LABS: Basophils # (auto) 0 10 ^3/uL (0-0.2); Basophils % (auto) 0.8 % (0.0-2.0); Eosinophils # (auto) 0 10 ^3/uL (0-0.8); Eosinophils % (auto) 0.1 % (0.0-7.0); Hematocrit 36.9 % (36.0-46.0); Hemoglobin 12.4 g/dL (12.2-16.2); Lymphocytes # (auto) 0.3 10 ^3/uL (0.4-5.4); Lymphocytes % (auto) 8.9 % (10.0-50.0); Mean Corpuscular Hemoglobin 27.9 pg (28.0-32.0); Mean Corpuscular Hgb Conc. 33.4 g/dL (32.0-36.0); Mean Corpuscular Volume 83.3 fL (80.0-100.0); Monocytes # (auto) 0.2 10 ^3/uL (0-1.3); Monocytes % (auto) 4.4 % (0.0-12.0); Neutrophils # (auto) 3.3 10 ^3/uL (1.6-8.6); Neutrophils % (auto) 85.8 % (37.0-80.0); Nucleated Red Blood Cells % 0.2 %; Platelet Count (auto) 362 10^3/uL (140-450); Red Blood Cells 4.43 10^6/uL (4.0-5.20); Red Cell Distribution Width 19.5 % (11.8-14.3); White Blood Cell 3.9 10^3/uL (4.4-10.8)
[2020-11-02 11:20] LABS: Urine Bacteria NONE SEEN /hpf (None Seen); Urine Blood Negative /uL (Negative); Urine Specific Gravity 1.019 (1.001-1.035); Urine WBC 1 /hpf (0 - 5)
[2020-11-02 12:58] LABS: Albumin 3.1 g/dL (3.4-5.0); Potassium 3.9 mmol/L (3.5-5.1)
[2020-11-02 13:01] LABS: BUN/Creatinine Ratio 24.6
[2020-11-02 13:05] LABS: Bilirubin, Total 0.3 mg/dL (0.2-1.0); Total Protein 7.3 g/dL (6.4-8.2)
[2020-11-02] MEDS ORDERED: KETAMINE 50mg/ML 10ml Vial (500mg/10ml) IV ONE (13:15)
[2020-11-02] MEDS ORDERED: MORPHINE SULFATE 4 MG/ML SYR/VIAL IV ONE (14:30)
[2020-11-02] MEDS ORDERED: ONDANSETRON HCL 4 MG/2 ML VIAL IV ONE (14:30)
[2020-11-02 16:36] LABS: INR 1.03 (0.9-1.15)
[2020-11-02] MEDS ORDERED: traMADol HCL 50 MG TAB PO SCH (22:00)
[2020-11-02] MEDS ORDERED: DOCUSATE SOD 100 MG CAP PO SCH (22:00)
[2020-11-02] MEDS: PREGABALIN 25 MG CAP PO SCH (22:47)
[2020-11-02] MEDS: PANTOPRAZOLE 40 MG TAB PO SCH (22:47)
[2020-11-02] MEDS: FERROUS SULFATE 325 MG TAB PO SCH (22:47)
[2020-11-02] MEDS: HYDROcodone-ACET 10/325MG TAB PO PRN (22:53)
[2020-11-03] VITALS (13 sets, daily range): BP systolic 112–154; BP diastolic 56–99
[2020-11-03] MEDS: FERROUS SULFATE 325 MG TAB PO SCH ×3 (06:12→22:39)
[2020-11-03] MEDS: PREGABALIN 25 MG CAP PO SCH ×3 (06:12→22:37)
[2020-11-03] MEDS ORDERED: SODIUM CHLORIDE LOCK 10 ML ONE (07:42)
[2020-11-03] MEDS ORDERED: fentaNYL CITRATE 100 MCG/2 ML VL ONE (07:42)
[2020-11-03] MEDS ORDERED: PROPOFOL 10 MG/ML 20 ML IV ONE (07:42)
[2020-11-03] MEDS ORDERED: ONDANSETRON HCL 4 MG/2 ML VIAL ONE (07:42)
[2020-11-03] MEDS ORDERED: MIDAZOLAM HCL 1MG/1ML-2 ML VIAL ONE (07:42)
[2020-11-03] MEDS ORDERED: BUPIVACAINE W/ EPINEPH 0.25% INJ 50ML MDV ONE (07:46)
[2020-11-03] MEDS ORDERED: TRANEXAMIC ACID 20 ML ONE (07:46)
[2020-11-03] MEDS: VANCOMYCIN HCL 1000 MG VL ONE ×2 (07:49→10:00)
[2020-11-03] MEDS ORDERED: ceFAZolin 1GM/50ML 50 ML IV ONE (08:07)
[2020-11-03] MEDS ORDERED: MORPHINE SULFATE 4 MG/ML SYR/VIAL IV PRN (08:15)
[2020-11-03] MEDS ORDERED: HYDROmorphone HCL 2 MG/ML VL IV PRN (08:15)
[2020-11-03] MEDS ORDERED: ONDANSETRON HCL 4 MG/2 ML VIAL IV PRN ×2 (08:15→16:45)
[2020-11-03] MEDS ORDERED: MORPHINE SULF(PF) 0.5MG/ML 10ML VIAL ONE (08:42)
[2020-11-03] MEDS ORDERED: KETOROLAC TROMETH 30 MG/ML 1ML VIAL ONE (08:50)
[2020-11-03] MEDS: HCTZ 25 MG TAB PO SCH (10:00)
[2020-11-03] MEDS ORDERED: NALOXONE HCL 0.4 MG/ML VIAL IV PRN (10:30)
[2020-11-03] MEDS: DOCUSATE SOD 100 MG CAP PO SCH ×3 (13:53→22:37)
[2020-11-03] MEDS: LISINOPRIL 20 MG TAB PO SCH (13:56)
[2020-11-03] MEDS: FOLIC ACID 1 MG TAB PO SCH (13:57)
[2020-11-03] MEDS: PANTOPRAZOLE 40 MG TAB PO SCH ×2 (13:57→22:37)
[2020-11-03] MEDS: amLODIPine BESYLATE 5 MG TAB PO SCH (13:58)
[2020-11-03] MEDS: LACTATED RINGER'S 1,000 ML IV SCH ×2 (13:58→20:30)
[2020-11-03] MEDS: SODIUM CHLOR 0.9% PF (SALINE LOCK) 10ML VIAL/SYR IV SCH ×2 (14:00→22:00)
[2020-11-03] MEDS: ceFAZolin 1GM/50ML 50 ML IV SCH ×2 (16:30→22:37)
[2020-11-03] MEDS: HYDROcodone-ACET 10/325MG TAB PO PRN (17:28)
[2020-11-04] VITALS (16 sets, daily range): BP systolic 101–141; BP diastolic 52–108
[2020-11-04] MEDS: HYDROcodone-ACET 10/325MG TAB PO PRN ×3 (03:41→17:19)
[2020-11-04] MEDS: LACTATED RINGER'S 1,000 ML IV SCH ×2 (05:59→12:04)
[2020-11-04] MEDS: PREGABALIN 25 MG CAP PO SCH ×3 (05:59→21:47)
[2020-11-04] MEDS: SODIUM CHLOR 0.9% PF (SALINE LOCK) 10ML VIAL/SYR IV SCH ×3 (05:59→21:46)
[2020-11-04 07:56] LABS: Hematocrit 33.3 % (36.0-46.0); Hemoglobin 11.2 g/dL (12.2-16.2)
[2020-11-04 08:07] LABS: Potassium 4.7 mmol/L (3.5-5.1)
[2020-11-04 08:11] LABS: Albumin 2.3 g/dL (3.4-5.0); BUN/Creatinine Ratio 23.1
[2020-11-04 08:13] LABS: Bilirubin, Total 0.4 mg/dL (0.2-1.0); Total Protein 5.9 g/dL (6.4-8.2)
[2020-11-04] MEDS: FOLIC ACID 1 MG TAB PO SCH (09:55)
[2020-11-04] MEDS: FERROUS SULFATE 325 MG TAB PO SCH ×3 (09:55→18:01)
[2020-11-04] MEDS: PANTOPRAZOLE 40 MG TAB PO SCH ×2 (09:56→21:47)
[2020-11-04] MEDS: ENOXAPARIN SOD 40 MG/0.4 ML SYRINGE SC SCH (09:56)
[2020-11-04] MEDS: DOCUSATE SOD 100 MG CAP PO SCH ×2 (09:56→21:47)
[2020-11-04] MEDS: amLODIPine BESYLATE 5 MG TAB PO SCH (09:56)
[2020-11-04] MEDS: LISINOPRIL 20 MG TAB PO SCH (09:56)
[2020-11-04] MEDS: HCTZ 25 MG TAB PO SCH (10:00)
[2020-11-05] VITALS (7 sets, daily range): BP systolic 127–148; BP diastolic 68–81
[2020-11-05] MEDS: HYDROcodone-ACET 10/325MG TAB PO PRN ×2 (00:18→06:36)
[2020-11-05] MEDS: LACTATED RINGER'S 1,000 ML IV SCH ×3 (02:30→22:30)
[2020-11-05] MEDS: PREGABALIN 25 MG CAP PO SCH ×3 (05:58→22:00)
[2020-11-05] MEDS: SODIUM CHLOR 0.9% PF (SALINE LOCK) 10ML VIAL/SYR IV SCH ×3 (05:58→22:00)
[2020-11-05 06:22] LABS: Hematocrit 31.9 % (36.0-46.0); Hemoglobin 10.5 g/dL (12.2-16.2)
[2020-11-05] MEDS: PANTOPRAZOLE 40 MG TAB PO SCH ×2 (08:41→22:00)
[2020-11-05] MEDS: amLODIPine BESYLATE 5 MG TAB PO SCH (08:42)
[2020-11-05] MEDS: LISINOPRIL 20 MG TAB PO SCH (08:42)
[2020-11-05] MEDS: FOLIC ACID 1 MG TAB PO SCH (08:43)
[2020-11-05] MEDS: DOCUSATE SOD 100 MG CAP PO SCH ×2 (08:43→22:00)
[2020-11-05] MEDS: ENOXAPARIN SOD 40 MG/0.4 ML SYRINGE SC SCH (08:43)
[2020-11-05] MEDS: FERROUS SULFATE 325 MG TAB PO SCH ×3 (08:43→19:22)
[2020-11-05] MEDS: HCTZ 25 MG TAB PO SCH (10:59)
[2020-11-05] MEDS: traMADol HCL 50 MG TAB PO PRN (11:19)
[2020-11-06] VITALS (7 sets, daily range): BP systolic 121–146; BP diastolic 66–81
[2020-11-06] MEDS: HYDROcodone-ACET 10/325MG TAB PO PRN ×2 (00:45→22:00)
[2020-11-06] MEDS: SODIUM CHLOR 0.9% PF (SALINE LOCK) 10ML VIAL/SYR IV SCH ×3 (06:03→22:00)
[2020-11-06] MEDS: PREGABALIN 25 MG CAP PO SCH ×3 (06:08→22:00)
[2020-11-06 07:21] LABS: Hematocrit 31.8 % (36.0-46.0); Hemoglobin 10.5 g/dL (12.2-16.2)
[2020-11-06] MEDS: FERROUS SULFATE 325 MG TAB PO SCH ×3 (08:05→18:07)
[2020-11-06] MEDS: LACTATED RINGER'S 1,000 ML IV SCH ×2 (08:06→18:52)
[2020-11-06] MEDS: DOCUSATE SOD 100 MG CAP PO SCH ×2 (10:05→22:00)
[2020-11-06] MEDS: FOLIC ACID 1 MG TAB PO SCH (10:05)
[2020-11-06] MEDS: HCTZ 25 MG TAB PO SCH (10:06)
[2020-11-06] MEDS: ENOXAPARIN SOD 40 MG/0.4 ML SYRINGE SC SCH (10:07)
[2020-11-06] MEDS: LISINOPRIL 20 MG TAB PO SCH (10:07)
[2020-11-06] MEDS: PANTOPRAZOLE 40 MG TAB PO SCH ×2 (10:07→22:00)
[2020-11-06] MEDS: amLODIPine BESYLATE 5 MG TAB PO SCH (10:07)
[2020-11-07] MEDS: LACTATED RINGER'S 1,000 ML IV SCH ×2 (04:30→14:04)
[2020-11-07 05:00] VITALS: BP 119/68
[2020-11-07] MEDS: SODIUM CHLOR 0.9% PF (SALINE LOCK) 10ML VIAL/SYR IV SCH ×3 (06:00→21:57)
[2020-11-07] MEDS: PREGABALIN 25 MG CAP PO SCH ×3 (06:00→21:58)
[2020-11-07 08:00] VITALS: BP 142/69
[2020-11-07] MEDS: FERROUS SULFATE 325 MG TAB PO SCH ×3 (08:52→17:44)
[2020-11-07 09:00] VITALS: BP_SYST 133; BP_SYST 146; BP_DIAS 68; BP_DIAS 72
[2020-11-07] MEDS: HYDROcodone-ACET 10/325MG TAB PO PRN ×3 (10:13→21:57)
[2020-11-07] MEDS: DOCUSATE SOD 100 MG CAP PO SCH ×2 (10:16→21:58)
[2020-11-07] MEDS: FOLIC ACID 1 MG TAB PO SCH (10:16)
[2020-11-07] MEDS: PANTOPRAZOLE 40 MG TAB PO SCH ×2 (10:17→21:58)
[2020-11-07] MEDS: HCTZ 25 MG TAB PO SCH (10:17)
[2020-11-07] MEDS: amLODIPine BESYLATE 5 MG TAB PO SCH (10:17)
[2020-11-07] MEDS: ENOXAPARIN SOD 40 MG/0.4 ML SYRINGE SC SCH (10:18)
[2020-11-07] MEDS: LISINOPRIL 20 MG TAB PO SCH (10:18)
[2020-11-07 12:38] VITALS: BP 127/64
[2020-11-07 16:51] VITALS: BP 128/59
[2020-11-07 22:00] VITALS: BP 128/65
[2020-11-08] MEDS: LACTATED RINGER'S 1,000 ML IV SCH (00:30)
[2020-11-08 05:00] VITALS: BP 118/62
[2020-11-08] MEDS: SODIUM CHLOR 0.9% PF (SALINE LOCK) 10ML VIAL/SYR IV SCH ×3 (05:17→21:51)
[2020-11-08] MEDS: PREGABALIN 25 MG CAP PO SCH ×3 (05:17→21:52)
[2020-11-08] MEDS: FERROUS SULFATE 325 MG TAB PO SCH ×3 (08:19→17:40)
[2020-11-08 08:47] VITALS: BP 125/71
[2020-11-08] MEDS: DOCUSATE SOD 100 MG CAP PO SCH ×2 (10:19→21:52)
[2020-11-08] MEDS: FOLIC ACID 1 MG TAB PO SCH (10:19)
[2020-11-08] MEDS: HCTZ 25 MG TAB PO SCH (10:26)
[2020-11-08] MEDS: amLODIPine BESYLATE 5 MG TAB PO SCH (10:27)
[2020-11-08] MEDS: PANTOPRAZOLE 40 MG TAB PO SCH ×2 (10:27→21:52)
[2020-11-08] MEDS: ENOXAPARIN SOD 40 MG/0.4 ML SYRINGE SC SCH (10:28)
[2020-11-08] MEDS: LISINOPRIL 20 MG TAB PO SCH (10:29)
[2020-11-08] MEDS: HYDROcodone-ACET 10/325MG TAB PO PRN (15:32)
[2020-11-08 17:05] VITALS: BP 130/72
[2020-11-08] MEDS: traMADol HCL 50 MG TAB PO PRN (21:52)
[2020-11-08 22:00] VITALS: BP 130/61
[2020-11-09 05:00] VITALS: BP 107/61
[2020-11-09] MEDS: traMADol HCL 50 MG TAB PO PRN (05:17)
[2020-11-09] MEDS: SODIUM CHLOR 0.9% PF (SALINE LOCK) 10ML VIAL/SYR IV SCH ×3 (05:17→21:34)
[2020-11-09] MEDS: PREGABALIN 25 MG CAP PO SCH ×3 (05:17→21:34)
[2020-11-09 07:06] LABS: Basophils # (auto) 0 10 ^3/uL (0-0.2); Basophils % (auto) 1.2 % (0.0-2.0); Eosinophils # (auto) 0.3 10 ^3/uL (0-0.8); Eosinophils % (auto) 10.8 % (0.0-7.0); Hematocrit 31.8 % (36.0-46.0); Hemoglobin 10.5 g/dL (12.2-16.2); Lymphocytes # (auto) 0.5 10 ^3/uL (0.4-5.4); Lymphocytes % (auto) 19.9 % (10.0-50.0); Mean Corpuscular Hemoglobin 27.2 pg (28.0-32.0); Mean Corpuscular Hgb Conc. 32.9 g/dL (32.0-36.0); Mean Corpuscular Volume 82.6 fL (80.0-100.0); Monocytes # (auto) 0.4 10 ^3/uL (0-1.3); Monocytes % (auto) 13.2 % (0.0-12.0); Neutrophils # (auto) 1.5 10 ^3/uL (1.6-8.6); Neutrophils % (auto) 54.9 % (37.0-80.0); Platelet Count (auto) 324 10^3/uL (140-450); Red Blood Cells 3.85 10^6/uL (4.0-5.20); White Blood Cell 2.7 10^3/uL (4.4-10.8)
[2020-11-09 07:17] LABS: Potassium 4.1 mmol/L (3.5-5.1)
[2020-11-09 07:23] LABS: BUN/Creatinine Ratio 30.9; Bilirubin, Total 0.3 mg/dL (0.2-1.0); Calcium 8.6 mg/dL (8.5-10.1); Total Protein 6.2 g/dL (6.4-8.2)
[2020-11-09 07:28] LABS: Albumin 2.2 g/dL (3.4-5.0)
[2020-11-09] MEDS: FERROUS SULFATE 325 MG TAB PO SCH ×3 (07:42→18:25)
[2020-11-09 08:26] VITALS: BP 131/80
[2020-11-09] MEDS: HCTZ 25 MG TAB PO SCH (10:55)
[2020-11-09] MEDS: FOLIC ACID 1 MG TAB PO SCH (10:55)
[2020-11-09] MEDS: DOCUSATE SOD 100 MG CAP PO SCH ×2 (10:55→21:34)
[2020-11-09] MEDS: amLODIPine BESYLATE 5 MG TAB PO SCH (10:56)
[2020-11-09] MEDS: LISINOPRIL 20 MG TAB PO SCH (10:56)
[2020-11-09] MEDS: PANTOPRAZOLE 40 MG TAB PO SCH ×2 (10:56→21:34)
[2020-11-09] MEDS: ENOXAPARIN SOD 40 MG/0.4 ML SYRINGE SC SCH (10:57)
[2020-11-09 13:25] VITALS: BP 133/76
[2020-11-09 17:22] VITALS: BP 131/70
[2020-11-09 22:00] VITALS: BP 111/68
[2020-11-09] MEDS ORDERED: LACTULOSE 20Gm/30ML SOLN PO PRN (23:15)
[2020-11-10 05:00] VITALS: BP 116/61
[2020-11-10] MEDS: PREGABALIN 25 MG CAP PO SCH ×3 (05:07→22:39)
[2020-11-10] MEDS: SODIUM CHLOR 0.9% PF (SALINE LOCK) 10ML VIAL/SYR IV SCH ×3 (05:07→22:39)
[2020-11-10] MEDS: FERROUS SULFATE 325 MG TAB PO SCH ×3 (08:11→17:30)
[2020-11-10 08:29] VITALS: BP 111/68
[2020-11-10] MEDS: DOCUSATE SOD 100 MG CAP PO SCH ×2 (10:21→22:39)
[2020-11-10] MEDS: FOLIC ACID 1 MG TAB PO SCH (10:21)
[2020-11-10] MEDS: HCTZ 25 MG TAB PO SCH (10:21)
[2020-11-10] MEDS: amLODIPine BESYLATE 5 MG TAB PO SCH (10:22)
[2020-11-10] MEDS: ENOXAPARIN SOD 40 MG/0.4 ML SYRINGE SC SCH (10:22)
[2020-11-10] MEDS: LISINOPRIL 20 MG TAB PO SCH (10:22)
[2020-11-10] MEDS: PANTOPRAZOLE 40 MG TAB PO SCH ×2 (10:22→22:39)
[2020-11-10 13:06] VITALS: BP 124/76
[2020-11-10 16:56] VITALS: BP 112/65
[2020-11-10 22:00] VITALS: BP 125/73
[2020-11-11 05:00] VITALS: BP 132/74
[2020-11-11] MEDS: SODIUM CHLOR 0.9% PF (SALINE LOCK) 10ML VIAL/SYR IV SCH ×2 (06:21→17:08)
[2020-11-11] MEDS: PREGABALIN 25 MG CAP PO SCH ×3 (06:21→21:28)
[2020-11-11 09:00] VITALS: BP 136/84
[2020-11-11] MEDS: FERROUS SULFATE 325 MG TAB PO SCH ×3 (09:15→18:04)
[2020-11-11] MEDS: amLODIPine BESYLATE 5 MG TAB PO SCH (10:00)
[2020-11-11] MEDS: DOCUSATE SOD 100 MG CAP PO SCH ×2 (11:27→21:27)
[2020-11-11] MEDS: FOLIC ACID 1 MG TAB PO SCH (11:27)
[2020-11-11] MEDS: HCTZ 25 MG TAB PO SCH (11:27)
[2020-11-11] MEDS: ENOXAPARIN SOD 40 MG/0.4 ML SYRINGE SC SCH (11:28)
[2020-11-11] MEDS: PANTOPRAZOLE 40 MG TAB PO SCH ×2 (11:28→21:27)
[2020-11-11] MEDS: LISINOPRIL 20 MG TAB PO SCH (11:28)
[2020-11-11 13:00] VITALS: BP 150/86
[2020-11-11 17:00] VITALS: BP 149/86
[2020-11-11 22:00] VITALS: BP 138/81
[2020-11-12] MEDS: SODIUM CHLOR 0.9% PF (SALINE LOCK) 10ML VIAL/SYR IV SCH ×4 (00:41→21:20)
[2020-11-12] MEDS: traMADol HCL 50 MG TAB PO PRN (02:10)
[2020-11-12 05:00] VITALS: BP 125/65
[2020-11-12] MEDS: PREGABALIN 25 MG CAP PO SCH ×3 (06:32→21:21)
[2020-11-12] MEDS: FERROUS SULFATE 325 MG TAB PO SCH ×3 (07:48→17:42)
[2020-11-12 09:00] VITALS: BP 133/74
[2020-11-12] MEDS: DOCUSATE SOD 100 MG CAP PO SCH ×2 (10:11→21:21)
[2020-11-12] MEDS: FOLIC ACID 1 MG TAB PO SCH (10:11)
[2020-11-12] MEDS: HCTZ 25 MG TAB PO SCH (10:11)
[2020-11-12] MEDS: amLODIPine BESYLATE 5 MG TAB PO SCH (10:12)
[2020-11-12] MEDS: LISINOPRIL 20 MG TAB PO SCH (10:12)
[2020-11-12] MEDS: PANTOPRAZOLE 40 MG TAB PO SCH ×2 (10:12→21:21)
[2020-11-12] MEDS: ENOXAPARIN SOD 40 MG/0.4 ML SYRINGE SC SCH (10:12)
[2020-11-12 12:48] VITALS: BP 142/82
[2020-11-12 22:24] VITALS: BP 125/72
[2020-11-13] MEDS: traMADol HCL 50 MG TAB PO PRN (03:16)
[2020-11-13 04:59] VITALS: BP 131/79
[2020-11-13] MEDS: PREGABALIN 25 MG CAP PO SCH ×3 (05:33→22:23)
[2020-11-13] MEDS: SODIUM CHLOR 0.9% PF (SALINE LOCK) 10ML VIAL/SYR IV SCH ×3 (05:45→22:23)
[2020-11-13 09:00] VITALS: BP 127/71
[2020-11-13] MEDS: FERROUS SULFATE 325 MG TAB PO SCH ×3 (09:30→18:23)
[2020-11-13] MEDS: FOLIC ACID 1 MG TAB PO SCH (09:31)
[2020-11-13] MEDS: amLODIPine BESYLATE 5 MG TAB PO SCH (09:32)
[2020-11-13] MEDS: HCTZ 25 MG TAB PO SCH (09:32)
[2020-11-13] MEDS: DOCUSATE SOD 100 MG CAP PO SCH ×2 (09:32→22:23)
[2020-11-13] MEDS: LISINOPRIL 20 MG TAB PO SCH (09:33)
[2020-11-13] MEDS: PANTOPRAZOLE 40 MG TAB PO SCH ×2 (09:33→22:23)
[2020-11-13] MEDS: ENOXAPARIN SOD 40 MG/0.4 ML SYRINGE SC SCH (09:33)
[2020-11-13 13:00] VITALS: BP 135/69
[2020-11-13 17:00] VITALS: BP 129/70
[2020-11-13] MEDS: levoFLOXacin 500MG 100 ML IV ONE ×2 (18:23→23:16)
[2020-11-13 22:00] VITALS: BP 122/74
[2020-11-14 05:00] VITALS: BP 124/70
[2020-11-14] MEDS: SODIUM CHLOR 0.9% PF (SALINE LOCK) 10ML VIAL/SYR IV SCH ×2 (06:29→13:52)
[2020-11-14] MEDS: PREGABALIN 25 MG CAP PO SCH ×2 (06:29→13:53)
[2020-11-14 09:00] VITALS: BP 135/76
[2020-11-14] MEDS: FOLIC ACID 1 MG TAB PO SCH (09:38)
[2020-11-14] MEDS: FERROUS SULFATE 325 MG TAB PO SCH ×2 (09:38→14:27)
[2020-11-14] MEDS: HCTZ 25 MG TAB PO SCH (09:39)
[2020-11-14] MEDS: DOCUSATE SOD 100 MG CAP PO SCH (09:39)
[2020-11-14] MEDS: PANTOPRAZOLE 40 MG TAB PO SCH (09:40)
[2020-11-14] MEDS: amLODIPine BESYLATE 5 MG TAB PO SCH (09:40)
[2020-11-14] MEDS: ENOXAPARIN SOD 40 MG/0.4 ML SYRINGE SC SCH (09:41)
[2020-11-14] MEDS: LISINOPRIL 20 MG TAB PO SCH (09:41)
[2020-11-14 13:00] VITALS: BP 135/73
[2020-11-14 15:09] VITALS: BP 135/76
[2020-11-14 16:38] VITALS: BP 141/79
== END 2020-11-14 18:02 | disposition home health service (06) | DRG 468 ==
LOC: EDBD 09:21 → ER 09:21 → OVERFLOW 17:55 → TELE-WESTW 11-03 07:55
PROVIDERS: ADMIT Internal Medicine Cardiovascular Disease; ATTEND Internal Medicine Cardiovascular Disease
PROC: 0SPS0JZ Removal of Synthetic Substitute from Left Hip Joint, Femoral Surface, Open Approach (ICD-10-PCS; 2020-11-03)
PROC: 0SRS01Z Replacement of Left Hip Joint, Femoral Surface with Metal Synthetic Substitute, Open Approach (ICD-10-PCS; principal; 2020-11-03 08:12)
DX: T84.021A Dislocation of internal left hip prosthesis, initial encounter (principal); F41.9 Anxiety disorder, unspecified; I10 Essential (primary) hypertension; M16.12 Unilateral primary osteoarthritis, left hip; Y79.2 Prosthetic and other implants, materials and accessory orthopedic devices associated with adverse incidents; Z80.0 Family history of malignant neoplasm of digestive organs; Z82.49 Family history of ischemic heart disease and other diseases of the circulatory system; Z20.822 Contact with and (suspected) exposure to COVID-19; Z79.899 Other long term (current) drug therapy; M06.9 Rheumatoid arthritis, unspecified; K59.00 Constipation, unspecified; W06.XXXA Fall from bed, initial encounter; Y93.89 Activity, other specified; Y92.89 Other specified places as the place of occurrence of the external cause
CPT/HCPCS: 36415; 51702; 71045; 72170; 76000; 80053; 81001; 85014; 85018; 85025; 85610; 86850; 86900; 86901; 87081; 87426; 96374; 96375; 97110; 97116; 97163; 97530; A4565; G0378; J0690; J1885; J1956; J2250; J2405; J2704

== ENCOUNTER 2020-11-19 14:05 | Inpatient (IN) | payer MEDICARE, OTHER ==
[~2020-11-19] VITALS: Ht 157.5 cm; Wt 57.8 kg
[~2020-11-19 14:05] MED LIST changes: -LISI-646 PO; +LISI20TA28 PO
[2020-11-19 14:40] LABS: Basophils # (auto) 0.1 10 ^3/uL (0-0.2); Basophils % (auto) 1.2 % (0.0-2.0); Eosinophils # (auto) 0.3 10 ^3/uL (0-0.8); Eosinophils % (auto) 7.4 % (0.0-7.0); Hematocrit 36.9 % (36.0-46.0); Hemoglobin 12.1 g/dL (12.2-16.2); Lymphocytes # (auto) 0.9 10 ^3/uL (0.4-5.4); Lymphocytes % (auto) 19.6 % (10.0-50.0); Mean Corpuscular Hgb Conc. 32.7 g/dL (32.0-36.0); Mean Corpuscular Volume 82.6 fL (80.0-100.0); Monocytes # (auto) 0.4 10 ^3/uL (0-1.3); Monocytes % (auto) 9.4 % (0.0-12.0); Neutrophils # (auto) 2.8 10 ^3/uL (1.6-8.6); Neutrophils % (auto) 62.4 % (37.0-80.0); Red Blood Cells 4.47 10^6/uL (4.0-5.20); White Blood Cell 4.5 10^3/uL (4.4-10.8)
[2020-11-19 14:53] LABS: Albumin 2.9 g/dL (3.4-5.0); Calcium 8.7 mg/dL (8.5-10.1); Potassium 3.7 mmol/L (3.5-5.1)
[2020-11-19 14:56] LABS: BUN/Creatinine Ratio 30.8; Bilirubin, Total 0.2 mg/dL (0.2-1.0); Total Protein 7.6 g/dL (6.4-8.2)
[2020-11-19 14:57] LABS: INR 1.06 (0.9-1.15); Partial Thromboplastin Time 27.1 sec (23.0-31.2)
[2020-11-19] MEDS ORDERED: MORPHINE SULFATE INJECTION 2 MG/ML SYRG IV ONE (17:45)
[2020-11-19] MEDS ORDERED: ONDANSETRON HCL 4 MG/2 ML VIAL IV ONE (17:45)
[2020-11-19] MEDS ORDERED: ONDANSETRON HCL 4 MG/2 ML VIAL IV PRN (19:45)
[2020-11-19] MEDS ORDERED: NITROGLYCERIN 0.4 MG SL TAB SL PRN (19:45)
[2020-11-19] MEDS ORDERED: MORPHINE SULFATE INJECTION 2 MG/ML SYRG IV PRN (19:45)
[2020-11-19] MEDS: SOD CHL 0.9%/ KCL 20MEQ 1,000 ML IV SCH (19:45)
[2020-11-19] MEDS: MORPHINE SULFATE INJECTION 2 MG/ML SYRG IV PRN (23:50)
[2020-11-20 01:04] LABS: Urine Bacteria FEW /hpf (None Seen); Urine Blood TRACE /uL (Negative); Urine Mucus FEW (None Seen); Urine Specific Gravity 1.025 (1.001-1.035); Urine WBC 2 /hpf (0 - 5)
[2020-11-20] MEDS ORDERED: hydrALAZINE HCL 20 MG/ML VL IV ONE (03:00)
[2020-11-20 08:50] VITALS: BP 129/83
[2020-11-20] MEDS: PANTOPRAZOLE 40 MG/10 ML VIAL INJ IV SCH (11:28)
[2020-11-20] MEDS: MORPHINE SULFATE INJECTION 2 MG/ML SYRG IV PRN ×2 (11:28→23:26)
[2020-11-20 13:00] VITALS: BP 151/87
[2020-11-20] MEDS: SOD CHL 0.9%/ KCL 20MEQ 1,000 ML IV SCH ×2 (16:21→23:23)
[2020-11-20 17:00] VITALS: BP 149/81
[2020-11-20 22:00] VITALS: BP 145/72
[2020-11-21] VITALS (9 sets, daily range): BP systolic 118–159; BP diastolic 57–87
[2020-11-21] MEDS: PANTOPRAZOLE 40 MG/10 ML VIAL INJ IV SCH (10:00)
[2020-11-21] MEDS ORDERED: VANCOMYCIN HCL 1000 MG VL ONE (10:05)
[2020-11-21] MEDS ORDERED: BUPIVACAINE W/ EPINEPH 0.25% INJ 50ML MDV ONE (10:09)
[2020-11-21] MEDS ORDERED: MORPHINE SULF PF 2 MG/2 ML SYRG ONE ×2 (10:10→11:12)
[2020-11-21] MEDS ORDERED: KETOROLAC TROMETH 30 MG/ML 1ML VIAL ONE (10:11)
[2020-11-21] MEDS ORDERED: TRANEXAMIC ACID 20 ML ONE (10:14)
[2020-11-21] MEDS ORDERED: TRANEXAMIC ACID 10 ML ONE (10:18)
[2020-11-21] MEDS ORDERED: ceFAZolin 1GM/50ML 100 ML IV ONE (10:45)
[2020-11-21] MEDS ORDERED: TETRACAINE 1% INJ 2 ML VIAL IJ ONE (10:55)
[2020-11-21] MEDS ORDERED: PHENYLEPHRINE HCL 10 MG/ML VL IV ONE (10:55)
[2020-11-21] MEDS ORDERED: ONDANSETRON HCL 4 MG/2 ML VIAL IV ONE (10:55)
[2020-11-21] MEDS ORDERED: fentaNYL CITRATE 100 MCG/2 ML VL ONE (10:59)
[2020-11-21] MEDS ORDERED: MIDAZOLAM HCL 2MG/2ML 2ml VIAL (1mg/ml) ONE (10:59)
[2020-11-21] MEDS ORDERED: LIDOCAINE 2% (LOCAL ANESTH.) PF 5ml SDV ONE (11:06)
[2020-11-21] MEDS ORDERED: PROPOFOL 10 MG/ML 20 ML IV ONE (11:06)
[2020-11-21] MEDS: LACTATED RINGER'S 1,000 ML IV SCH ×2 (13:15→23:15)
[2020-11-21] MEDS ORDERED: diphenhdrAMINE HCL 50 MG/1 ML VL IV PRN (13:45)
[2020-11-21] MEDS ORDERED: ONDANSETRON HCL 4 MG/2 ML VIAL IV PRN (13:45)
[2020-11-21] MEDS ORDERED: NALOXONE HCL 0.4 MG/ML VIAL IV PRN (13:45)
[2020-11-21] MEDS: SOD CHL 0.9%/ KCL 20MEQ 1,000 ML IV SCH (17:42)
[2020-11-21] MEDS: ceFAZolin 1GM/50ML 50 ML IV SCH ×2 (17:42→20:04)
[2020-11-21] MEDS: SODIUM CHLOR 0.9% PF (SALINE LOCK) 10ML VIAL/SYR IV SCH ×2 (17:42→21:59)
[2020-11-21] MEDS: HYDROcodone-ACET 5/325MG TAB PO PRN (22:25)
[2020-11-22] VITALS (14 sets, daily range): BP systolic 122–167; BP diastolic 65–95
[2020-11-22] MEDS: SOD CHL 0.9%/ KCL 20MEQ 1,000 ML IV SCH (01:05)
[2020-11-22] MEDS: ceFAZolin 1GM/50ML 50 ML IV SCH (01:16)
[2020-11-22 05:57] LABS: Hematocrit 33.6 % (36.0-46.0); Hemoglobin 11.2 g/dL (12.2-16.2)
[2020-11-22] MEDS: SODIUM CHLOR 0.9% PF (SALINE LOCK) 10ML VIAL/SYR IV SCH ×3 (06:17→22:03)
[2020-11-22 06:18] LABS: Potassium 4.9 mmol/L (3.5-5.1)
[2020-11-22 06:25] LABS: BUN/Creatinine Ratio 30.4; Bilirubin, Total 0.4 mg/dL (0.2-1.0); Calcium 7.8 mg/dL (8.5-10.1); Total Protein 5.4 g/dL (6.4-8.2)
[2020-11-22] MEDS: HYDROcodone-ACET 5/325MG TAB PO PRN ×2 (07:27→14:52)
[2020-11-22] MEDS: LACTATED RINGER'S 1,000 ML IV SCH (09:15)
[2020-11-22] MEDS: PANTOPRAZOLE 40 MG/10 ML VIAL INJ IV SCH (10:13)
[2020-11-22] MEDS: HCTZ 25 MG TAB PO SCH (10:13)
[2020-11-22] MEDS: ENOXAPARIN SOD 40 MG/0.4 ML SYRINGE SC SCH (10:14)
[2020-11-22] MEDS: amLODIPine BESYLATE 5 MG TAB PO SCH (10:14)
[2020-11-22] MEDS: LISINOPRIL 20 MG TAB PO SCH (10:14)
[2020-11-22] MEDS: MORPHINE SULFATE INJECTION 2 MG/ML SYRG IV PRN ×2 (12:02→18:08)
[2020-11-22] MEDS ORDERED: cloNIDine HCL 0.1 MG TAB PO ONE (12:30)
[2020-11-22] MEDS ORDERED: cloNIDine HCL 0.1 MG TAB PO PRN (12:45)
[2020-11-22] MEDS ORDERED: cloNIDine HCL 0.1 MG TAB PO SCH (18:00)
[2020-11-23] MEDS: MORPHINE SULFATE INJECTION 2 MG/ML SYRG IV PRN (00:09)
[2020-11-23 05:00] VITALS: BP 155/67
[2020-11-23] MEDS ORDERED: ALENDRONATE SODIUM 10 MG TAB PO SCH (06:00)
[2020-11-23] MEDS: SODIUM CHLOR 0.9% PF (SALINE LOCK) 10ML VIAL/SYR IV SCH ×3 (06:23→20:45)
[2020-11-23 09:00] VITALS: BP 110/65
[2020-11-23 09:11] LABS: Hematocrit 32.6 % (36.0-46.0); Hemoglobin 10.9 g/dL (12.2-16.2)
[2020-11-23] MEDS: amLODIPine BESYLATE 5 MG TAB PO SCH (10:00)
[2020-11-23] MEDS: PANTOPRAZOLE 40 MG/10 ML VIAL INJ IV SCH (10:15)
[2020-11-23] MEDS: HCTZ 25 MG TAB PO SCH (10:16)
[2020-11-23] MEDS: ENOXAPARIN SOD 40 MG/0.4 ML SYRINGE SC SCH (10:16)
[2020-11-23] MEDS: LISINOPRIL 20 MG TAB PO SCH (10:17)
[2020-11-23 13:00] VITALS: BP 139/67
[2020-11-23] MEDS: HYDROcodone-ACET 5/325MG TAB PO PRN ×2 (14:25→21:19)
[2020-11-23 17:00] VITALS: BP 131/69
[2020-11-23 22:00] VITALS: BP 144/66
[2020-11-23] MEDS: DOCUSATE SOD 100 MG CAP PO PRN (22:32)
[2020-11-24 05:00] VITALS: BP 140/78
[2020-11-24] MEDS: SODIUM CHLOR 0.9% PF (SALINE LOCK) 10ML VIAL/SYR IV SCH ×3 (06:04→23:13)
[2020-11-24 08:00] VITALS: BP 136/79
[2020-11-24 08:30] VITALS: BP 136/79
[2020-11-24 09:13] LABS: Hemoglobin 9.1 g/dL (12.2-16.2)
[2020-11-24 09:17] LABS: Hematocrit 27.4 % (36.0-46.0)
[2020-11-24] MEDS: PANTOPRAZOLE 40 MG/10 ML VIAL INJ IV SCH (10:30)
[2020-11-24] MEDS: HCTZ 25 MG TAB PO SCH (10:30)
[2020-11-24] MEDS: amLODIPine BESYLATE 5 MG TAB PO SCH (10:31)
[2020-11-24] MEDS: LISINOPRIL 20 MG TAB PO SCH (10:31)
[2020-11-24] MEDS: ENOXAPARIN SOD 40 MG/0.4 ML SYRINGE SC SCH (10:32)
[2020-11-24 12:30] VITALS: BP 141/81
[2020-11-24 17:00] VITALS: BP 155/75
[2020-11-24] MEDS: HYDROcodone-ACET 5/325MG TAB PO PRN (20:18)
[2020-11-24 22:00] VITALS: BP 154/74
[2020-11-25 05:00] VITALS: BP 150/75
[2020-11-25] MEDS: DOCUSATE SOD 100 MG CAP PO PRN (05:58)
[2020-11-25] MEDS: SODIUM CHLOR 0.9% PF (SALINE LOCK) 10ML VIAL/SYR IV SCH ×2 (05:58→14:06)
[2020-11-25 08:00] VITALS: BP 143/86
[2020-11-25] MEDS: HCTZ 25 MG TAB PO SCH (09:39)
[2020-11-25] MEDS: amLODIPine BESYLATE 5 MG TAB PO SCH (09:39)
[2020-11-25] MEDS: ENOXAPARIN SOD 40 MG/0.4 ML SYRINGE SC SCH (09:40)
[2020-11-25] MEDS: LISINOPRIL 20 MG TAB PO SCH (09:40)
[2020-11-25] MEDS: PANTOPRAZOLE 40 MG/10 ML VIAL INJ IV SCH (09:40)
[2020-11-25 12:00] VITALS: BP 132/73
[2020-11-25] MEDS: HYDROcodone-ACET 5/325MG TAB PO PRN (14:06)
[2020-11-25 15:48] VITALS: BP 132/73
[2020-11-25 16:00] VITALS: BP 144/85
== END 2020-11-25 17:30 | disposition home health service (06) | DRG 467 ==
LOC: ER 14:05 → EDBD 14:05 → TELE 14:06 → TELE-WESTW 11-20 04:48
PROVIDERS: ADMIT Nurse Practitioner Acute Care; ATTEND Family Medicine
PROC: 0SPB0JZ Removal of Synthetic Substitute from Left Hip Joint, Open Approach (ICD-10-PCS; 2020-11-21)
PROC: 30233N1 Transfusion of Nonautologous Red Blood Cells into Peripheral Vein, Percutaneous Approach (ICD-10-PCS; 2020-11-21)
PROC: 8E0YXBZ Computer Assisted Procedure of Lower Extremity (ICD-10-PCS; 2020-11-21)
PROC: 0SRB069 Replacement of Left Hip Joint with Oxidized Zirconium on Polyethylene Synthetic Substitute, Cemented, Open Approach (ICD-10-PCS; principal; 2020-11-21 10:54)
DX: T84.021A Dislocation of internal left hip prosthesis, initial encounter (principal); E44.1 Mild protein-calorie malnutrition; R64 Cachexia; M06.9 Rheumatoid arthritis, unspecified; I10 Essential (primary) hypertension; M41.9 Scoliosis, unspecified; Y79.2 Prosthetic and other implants, materials and accessory orthopedic devices associated with adverse incidents; M24.562 Contracture, left knee; Z82.49 Family history of ischemic heart disease and other diseases of the circulatory system; Z68.21 Body mass index [BMI] 21.0-21.9, adult; Z87.81 Personal history of (healed) traumatic fracture; Z83.3 Family history of diabetes mellitus; Z80.0 Family history of malignant neoplasm of digestive organs; Y92.89 Other specified places as the place of occurrence of the external cause; Z20.822 Contact with and (suspected) exposure to COVID-19
CPT/HCPCS: 36415; 71045; 72170; 73501; 73502; 80053; 81001; 85014; 85018; 85025; 85610; 85730; 86850; 86900; 86901; 86920; 87081; 87426; 96361; 96374; 96375; 96376; 97110; 97116; 97530; C1713; C9113; G0378; J0690; J1885; J2001; J2250; J2405; J2704

== ENCOUNTER 2020-12-07 13:33 | Inpatient (IN) | payer MEDICARE, OTHER ==
[~2020-12-07] VITALS: Ht 160 cm; Wt 52.9 kg
[~2020-12-07 13:33] MED LIST changes: +LISI-646 PO; -LISI20TA28 PO
[2020-12-07] MEDS ORDERED: MORPHINE SULFATE 4 MG/ML SYR/VIAL IV ONE (15:45)
[2020-12-07] MEDS ORDERED: ONDANSETRON HCL 4 MG/2 ML VIAL IV ONE (15:45)
[2020-12-07] MEDS ORDERED: MIDAZOLAM HCL 5 MG/ML-1ML VIAL IV ONE (16:45)
[2020-12-07] MEDS ORDERED: fentaNYL CITRATE 100 MCG/2 ML VL IV ONE (16:45)
[2020-12-07] MEDS ORDERED: PROPOFOL 10 MG/ML 20 ML IV ONE (16:45)
[2020-12-07 17:59] LABS: Basophils # (auto) 0.1 10 ^3/uL (0-0.2); Basophils % (auto) 0.9 % (0.0-2.0); Eosinophils # (auto) 0.5 10 ^3/uL (0-0.8); Eosinophils % (auto) 7.9 % (0.0-7.0); Hematocrit 36.9 % (36.0-46.0); Hemoglobin 12.2 g/dL (12.2-16.2); Lymphocytes # (auto) 1.2 10 ^3/uL (0.4-5.4); Lymphocytes % (auto) 21.3 % (10.0-50.0); Mean Corpuscular Hemoglobin 27.1 pg (28.0-32.0); Mean Corpuscular Hgb Conc. 32.9 g/dL (32.0-36.0); Mean Corpuscular Volume 82.3 fL (80.0-100.0); Monocytes # (auto) 0.4 10 ^3/uL (0-1.3); Monocytes % (auto) 7.1 % (0.0-12.0); Neutrophils # (auto) 3.6 10 ^3/uL (1.6-8.6); Neutrophils % (auto) 62.8 % (37.0-80.0); Nucleated Red Blood Cells % 0.1 %; Platelet Count (auto) 305 10^3/uL (140-450); Red Blood Cells 4.48 10^6/uL (4.0-5.20); Red Cell Distribution Width 18.2 % (11.8-14.3); White Blood Cell 5.7 10^3/uL (4.4-10.8)
[2020-12-07 18:16] LABS: INR 1.08 (0.9-1.15); Partial Thromboplastin Time 27.1 sec (23.0-31.2)
[2020-12-07 18:53] LABS: Calcium 8.5 mg/dL (8.5-10.1); Magnesium 2.3 mg/dL (1.6-2.6); Potassium 4.1 mmol/L (3.5-5.1)
[2020-12-07 18:56] LABS: Bilirubin, Total 0.4 mg/dL (0.2-1.0); Total Protein 6.7 g/dL (6.4-8.2)
[2020-12-07] MEDS ORDERED: ONDANSETRON HCL 4 MG/2 ML VIAL IV PRN (23:45)
[2020-12-07] MEDS ORDERED: HYDROcodone-ACET 5/325MG TAB PO PRN (23:45)
[2020-12-07] MEDS ORDERED: NITROGLYCERIN 0.4 MG SL TAB SL PRN (23:45)
[2020-12-07] MEDS ORDERED: hydrALAZINE HCL 20 MG/ML VL IV PRN (23:45)
[2020-12-07] MEDS ORDERED: MORPHINE SULF INJ 2 MG/ML SYRINGE 1ML IV PRN (23:45)
[2020-12-07] MEDS ORDERED: ACETAMINOPHEN 325 MG TAB PO PRN (23:45)
[2020-12-08 04:47] VITALS: BP 139/80
[2020-12-08 08:12] LABS: Basophils # (auto) 0.1 10 ^3/uL (0-0.2); Basophils % (auto) 1.1 % (0.0-2.0); Eosinophils # (auto) 0.5 10 ^3/uL (0-0.8); Eosinophils % (auto) 8.9 % (0.0-7.0); Hematocrit 38.5 % (36.0-46.0); Hemoglobin 12.8 g/dL (12.2-16.2); Lymphocytes # (auto) 0.9 10 ^3/uL (0.4-5.4); Lymphocytes % (auto) 15.1 % (10.0-50.0); Mean Corpuscular Hemoglobin 27.6 pg (28.0-32.0); Mean Corpuscular Hgb Conc. 33.2 g/dL (32.0-36.0); Mean Corpuscular Volume 83.1 fL (80.0-100.0); Monocytes # (auto) 0.3 10 ^3/uL (0-1.3); Monocytes % (auto) 5.8 % (0.0-12.0); Neutrophils % (auto) 69.1 % (37.0-80.0); Nucleated Red Blood Cells % 0.1 %; Platelet Count (auto) 279 10^3/uL (140-450); Red Blood Cells 4.64 10^6/uL (4.0-5.20); White Blood Cell 5.8 10^3/uL (4.4-10.8)
[2020-12-08 08:28] LABS: Albumin 2.8 g/dL (3.4-5.0); BUN/Creatinine Ratio 31.5; Calcium 8.3 mg/dL (8.5-10.1); Potassium 4.3 mmol/L (3.5-5.1)
[2020-12-08 08:31] LABS: Bilirubin, Total 0.5 mg/dL (0.2-1.0); Total Protein 6.9 g/dL (6.4-8.2)
[2020-12-08 09:00] VITALS: BP 152/80
[2020-12-08] MEDS: FAMOTIDINE 20 MG TAB PO SCH (11:13)
[2020-12-08] MEDS: ASCORBIC ACID 500 MG TAB PO SCH ×2 (11:13→22:03)
[2020-12-08] MEDS: MULTIPLE VITAMIN TAB PO SCH (11:13)
[2020-12-08] MEDS: ENOXAPARIN SOD 40 MG/0.4 ML SYRINGE SC SCH (11:13)
[2020-12-08] MEDS: ZINC SULFATE 220mg CAP or TAB PO SCH (11:13)
[2020-12-08] MEDS: amLODIPine BESYLATE 5 MG TAB PO SCH (11:14)
[2020-12-08] MEDS: KETOROLAC TROMETH 30 MG/ML 1ML VIAL IV PRN ×2 (11:29→18:55)
[2020-12-08 13:00] VITALS: BP 131/89
[2020-12-08] MEDS: Ensure HIGH Protein Chocolate 8oz Bottle PO SCH (18:55)
[2020-12-08 21:35] VITALS: BP 137/72
[2020-12-09] MEDS: KETOROLAC TROMETH 30 MG/ML 1ML VIAL IV PRN ×3 (04:47→19:14)
[2020-12-09 05:00] VITALS: BP 131/81
[2020-12-09 06:57] LABS: Hemoglobin 11.9 g/dL (12.2-16.2)
[2020-12-09 07:01] LABS: Hematocrit 36.1 % (36.0-46.0); Mean Corpuscular Hemoglobin 27.3 pg (28.0-32.0); Mean Corpuscular Hgb Conc. 33.1 g/dL (32.0-36.0); Mean Corpuscular Volume 82.6 fL (80.0-100.0); Platelet Count (auto) 281 10^3/uL (140-450); Red Blood Cells 4.36 10^6/uL (4.0-5.20); Red Cell Distribution Width 17.6 % (11.8-14.3); White Blood Cell 5.1 10^3/uL (4.4-10.8)
[2020-12-09 07:03] LABS: Basophils % (manual) 0 (0.0-2.0); Blast Cells 0; Metamyelocytes % 0; Myelocytes % 0; Promyelocytes % 0; Reactive Lymphocytes 0
[2020-12-09 07:08] LABS: Calcium 8.6 mg/dL (8.5-10.1); Potassium 4.1 mmol/L (3.5-5.1)
[2020-12-09 08:36] LABS: Band Neutrophils % (manual) 2; Eosinophils % (manual) 18 (0-7); Lymphocytes % (manual) 13 (10.0-50.0); Monocytes % (manual) 7 (0-12)
[2020-12-09 09:07] VITALS: BP 148/89
[2020-12-09] MEDS: ASCORBIC ACID 500 MG TAB PO SCH ×2 (11:26→22:28)
[2020-12-09] MEDS: FAMOTIDINE 20 MG TAB PO SCH (11:26)
[2020-12-09] MEDS: MULTIPLE VITAMIN TAB PO SCH (11:26)
[2020-12-09] MEDS: DOCUSATE SOD 100 MG CAP PO PRN ×2 (11:26→22:28)
[2020-12-09] MEDS: ENOXAPARIN SOD 40 MG/0.4 ML SYRINGE SC SCH (11:27)
[2020-12-09] MEDS: amLODIPine BESYLATE 5 MG TAB PO SCH (11:27)
[2020-12-09] MEDS: Ensure HIGH Protein Chocolate 8oz Bottle PO SCH ×2 (12:00→18:00)
[2020-12-09] MEDS: ZINC SULFATE 220mg CAP or TAB PO SCH (12:40)
[2020-12-09 12:42] LABS: Urine Bacteria NONE SEEN /hpf (None Seen); Urine Blood Negative /uL (Negative); Urine Mucus FEW (None Seen); Urine Specific Gravity 1.031 (1.001-1.035); Urine WBC 28 /hpf (0 - 5)
[2020-12-09 12:52] VITALS: BP 139/87
[2020-12-09 17:00] VITALS: BP 147/75
[2020-12-09 22:00] VITALS: BP 124/70
[2020-12-10 05:00] VITALS: BP 139/81
[2020-12-10 06:25] LABS: Hematocrit 35.6 % (36.0-46.0); Hemoglobin 11.9 g/dL (12.2-16.2); Mean Corpuscular Hemoglobin 27.5 pg (28.0-32.0); Mean Corpuscular Hgb Conc. 33.3 g/dL (32.0-36.0); Mean Corpuscular Volume 82.5 fL (80.0-100.0); Platelet Count (auto) 259 10^3/uL (140-450); Red Blood Cells 4.32 10^6/uL (4.0-5.20); Red Cell Distribution Width 17.8 % (11.8-14.3); White Blood Cell 4.4 10^3/uL (4.4-10.8)
[2020-12-10 06:36] LABS: BUN/Creatinine Ratio 53.3; Calcium 8.9 mg/dL (8.5-10.1); Potassium 4.1 mmol/L (3.5-5.1)
[2020-12-10 06:41] LABS: Band Neutrophils % (manual) 0; Basophils % (manual) 0 (0.0-2.0); Blast Cells 0; Metamyelocytes % 0; Myelocytes % 0; Promyelocytes % 0; Reactive Lymphocytes 0
[2020-12-10] MEDS: Ensure HIGH Protein Chocolate 8oz Bottle PO SCH ×2 (08:04→12:03)
[2020-12-10 08:35] VITALS: BP 150/77
[2020-12-10 08:47] LABS: Eosinophils % (manual) 30 (0-7); Lymphocytes % (manual) 22 (10.0-50.0); Monocytes % (manual) 7 (0-12)
[2020-12-10] MEDS ORDERED: LISINOPRIL 20 MG TAB PO ONE (11:00)
[2020-12-10] MEDS ORDERED: amLODIPine BESYLATE 5 MG TAB PO ONE (11:00)
[2020-12-10] MEDS ORDERED: amLODIPine BESYLATE 5 MG TAB PO SCH (11:05)
[2020-12-10] MEDS: ZINC SULFATE 220mg CAP or TAB PO SCH (11:56)
[2020-12-10] MEDS: MULTIPLE VITAMIN TAB PO SCH (11:56)
[2020-12-10] MEDS: FAMOTIDINE 20 MG TAB PO SCH (11:57)
[2020-12-10] MEDS: ENOXAPARIN SOD 40 MG/0.4 ML SYRINGE SC SCH (11:57)
[2020-12-10] MEDS: ASCORBIC ACID 500 MG TAB PO SCH (11:57)
[2020-12-10 12:38] VITALS: BP 141/75
[2020-12-10 15:23] VITALS: BP 141/75
== END 2020-12-10 17:20 | disposition home or self-care (01) | DRG 641 ==
LOC: ER 13:33 → TELE 23:33 → TELE-WESTW 12-08 04:47
PROVIDERS: ADMIT Nurse Practitioner Family; ATTEND Internal Medicine
DX: E44.0 Moderate protein-calorie malnutrition (principal); M25.552 Pain in left hip; M85.89 Other specified disorders of bone density and structure, multiple sites; I10 Essential (primary) hypertension; M85.80 Other specified disorders of bone density and structure, unspecified site; Z20.822 Contact with and (suspected) exposure to COVID-19; M19.90 Unspecified osteoarthritis, unspecified site; Z80.0 Family history of malignant neoplasm of digestive organs; Z82.49 Family history of ischemic heart disease and other diseases of the circulatory system; Z82.5 Family history of asthma and other chronic lower respiratory diseases; Z83.3 Family history of diabetes mellitus; Z79.899 Other long term (current) drug therapy; Z79.01 Long term (current) use of anticoagulants; Z79.891 Long term (current) use of opiate analgesic; Z68.20 Body mass index [BMI] 20.0-20.9, adult; Z96.642 Presence of left artificial hip joint
CPT/HCPCS: 27250; 36415; 71045; 72170; 72192; 80048; 80053; 81001; 83690; 83735; 84443; 85007; 85025; 85027; 85610; 85730; 87081; 87426; 93005; 96374; 96375; 99152; G0378; J1885; J2250; J2405; J2704

== ENCOUNTER → 2021-05-02 | Outpatient (CLI) | payer MEDICARE, OTHER, BC ==
[~2021-05-02] MED LIST changes: -LISI-646 PO; +LISI20TA28 PO
== END | disposition home or self-care (01) ==
LOC: Rad HDHVI 14:10
PROVIDERS: ATTEND Internal Medicine Cardiovascular Disease
DX: I10 Essential (primary) hypertension (principal); E78.00 Pure hypercholesterolemia, unspecified
CPT/HCPCS: 93306

== ENCOUNTER 2021-09-28 16:29 | Inpatient (IN) | payer MEDICARE, OTHER ==
[~2021-09-28] VITALS: Ht 165.1 cm; Wt 54.1 kg
[2021-09-28] MEDS ORDERED: DexAMETHasone SOD PHOS 10MG/1ML VIAL INJ IV ONE (18:45)
[2021-09-29 00:11] LABS: Eosinophils # (auto) 0 10 ^3/uL (0-0.8); Nucleated Red Blood Cells % 0.2 %; White Blood Cell 3.5 10^3/uL (4.4-10.8)
[2021-09-29 00:13] LABS: Basophils # (auto) 0 10 ^3/uL (0-0.2); Basophils % (auto) 0.5 % (0.0-2.0); Hematocrit 36.1 % (36.0-46.0); Lymphocytes # (auto) 0.5 10 ^3/uL (0.4-5.4); Lymphocytes % (auto) 13.8 % (10.0-50.0); Mean Corpuscular Hemoglobin 26.9 pg (28.0-32.0); Mean Corpuscular Hgb Conc. 33.2 g/dL (32.0-36.0); Mean Corpuscular Volume 81.2 fL (80.0-100.0); Monocytes # (auto) 0.2 10 ^3/uL (0-1.3); Monocytes % (auto) 5.7 % (0.0-12.0); Neutrophils # (auto) 2.8 10 ^3/uL (1.6-8.6); Red Blood Cells 4.44 10^6/uL (4.0-5.20); Red Cell Distribution Width 18.6 % (11.8-14.3)
[2021-09-29 00:41] LABS: INR 1.01 (0.9-1.15); Partial Thromboplastin Time 28.2 sec (23.6-33.0)
[2021-09-29] MEDS ORDERED: AZITHROMYCIN 500MG/ 250ML 250 ML IV ONE (01:00)
[2021-09-29 01:09] LABS: Albumin 2.7 g/dL (3.4-5.0); BUN/Creatinine Ratio 43.8; Bilirubin, Total 0.4 mg/dL (0.2-1.0); CRP High Sensitivity 3.2 mg/dL (< 0.3); Calcium 8.5 mg/dL (8.5-10.1); Magnesium 2.9 mg/dL (1.6-2.6); Total Protein 7.1 g/dL (6.4-8.2)
[2021-09-29] MEDS ORDERED: ACETAMINOPHEN 325 MG TAB PO PRN (01:30)
[2021-09-29] MEDS ORDERED: ONDANSETRON HCL 4 MG/2 ML VIAL IV PRN (01:30)
[2021-09-29] MEDS ORDERED: DOCUSATE SOD 100 MG CAP PO PRN (01:30)
[2021-09-29] MEDS ORDERED: HYDROcodone-ACET 5/325MG TAB PO PRN (01:30)
[2021-09-29] MEDS ORDERED: ACETAMINOPHEN 500 MG TAB PO PRN (01:30)
[2021-09-29] MEDS: SODIUM CHLORIDE 0.9% 1,000 ML IV SCH ×2 (02:47→10:45)
[2021-09-29 02:53] LABS: Magnesium 2.3 mg/dL (1.6-2.6)
[2021-09-29] MEDS ORDERED: MORPHINE SULFATE INJECTION 2 MG/ML SYRG IV PRN (03:15)
[2021-09-29] MEDS ORDERED: BUDESONIDE (INHALATION) 180 MCG IH IN SCH (10:00)
[2021-09-29] MEDS ORDERED: HEPARIN SODIUM (PORCINE) 5000 UNITS/ML 1ML VIAL SC SCH ×2 (10:00)
[2021-09-29] MEDS: FAMOTIDINE (10MG/ML) 2ML VL IV SCH ×2 (10:45→22:30)
[2021-09-29] MEDS: MULTIPLE VITAMIN TAB PO SCH (10:45)
[2021-09-29] MEDS: ASPirin 81 mg TAB PO SCH (10:45)
[2021-09-29] MEDS: ZINC SULFATE 220mg CAP or TAB PO SCH (10:45)
[2021-09-29] MEDS: CHOLECALCIFEROL (VITD3) 2,000 UNIT CAP/TAB PO SCH (10:46)
[2021-09-29] MEDS: ASCORBIC ACID 1,000 MG TAB PO SCH (10:46)
[2021-09-29] MEDS ORDERED: IOHEXOL 350 MG/ML 100ML IJ ONE (12:25)
[2021-09-29] MEDS ORDERED: ERGOCALCIFEROL 50,000 UNIT(1.25MG) CAP PO SCH (12:45)
[2021-09-29] MEDS ORDERED: ENOXAPARIN SOD 60 MG/0.6 ML SYRINGE SC ONE (13:15)
[2021-09-29 20:51] VITALS: BP 148/81
[2021-09-29 22:00] VITALS: BP 148/81
[2021-09-29] MEDS ORDERED: AZITHROMYCIN 500MG/ 250ML 250 ML IV SCH (22:00)
[2021-09-29] MEDS ORDERED: DexAMETHasone SOD PHOS 10MG/1ML VIAL INJ IV SCH (22:00)
[2021-09-29] MEDS: ENOXAPARIN SOD 60 MG/0.6 ML SYRINGE SC SCH (22:30)
[2021-09-30] VITALS (7 sets, daily range): BP systolic 134–156; BP diastolic 72–93
[2021-09-30 06:10] LABS: Basophils # (auto) 0 10 ^3/uL (0-0.2); Basophils % (auto) 0.5 % (0.0-2.0); Eosinophils # (auto) 0 10 ^3/uL (0-0.8); Eosinophils % (auto) 0.3 % (0.0-7.0); Hemoglobin 11.7 g/dL (12.2-16.2); Lymphocytes # (auto) 0.8 10 ^3/uL (0.4-5.4); Mean Corpuscular Hemoglobin 26.5 pg (28.0-32.0); Mean Corpuscular Hgb Conc. 32.4 g/dL (32.0-36.0); Mean Corpuscular Volume 81.7 fL (80.0-100.0); Monocytes # (auto) 0.2 10 ^3/uL (0-1.3); Neutrophils # (auto) 1.4 10 ^3/uL (1.6-8.6); Neutrophils % (auto) 58.2 % (37.0-80.0); Nucleated Red Blood Cells % 0.5 %; Red Cell Distribution Width 19.1 % (11.8-14.3); White Blood Cell 2.5 10^3/uL (4.4-10.8)
[2021-09-30 06:50] LABS: Albumin 2.6 g/dL (3.4-5.0); Calcium 8.1 mg/dL (8.5-10.1); Potassium 3.9 mmol/L (3.5-5.1)
[2021-09-30 06:55] LABS: BUN/Creatinine Ratio 38.1; Bilirubin, Total 0.5 mg/dL (0.2-1.0); Total Protein 6.1 g/dL (6.4-8.2)
[2021-09-30 08:04] LABS: Urine Bacteria MANY /hpf (None Seen); Urine Blood Negative /uL (Negative); Urine Mucus MANY (None Seen); Urine WBC 25 /hpf (0 - 5)
[2021-09-30] MEDS: ASCORBIC ACID 1,000 MG TAB PO SCH (10:24)
[2021-09-30] MEDS: AZITHROMYCIN 250 MG TAB PO SCH (10:24)
[2021-09-30] MEDS: ASPirin 81 mg TAB PO SCH (10:25)
[2021-09-30] MEDS: FAMOTIDINE (10MG/ML) 2ML VL IV SCH ×2 (10:25→21:21)
[2021-09-30] MEDS: MULTIPLE VITAMIN TAB PO SCH (10:25)
[2021-09-30] MEDS: CHOLECALCIFEROL (VITD3) 2,000 UNIT CAP/TAB PO SCH (10:30)
[2021-09-30] MEDS: ENOXAPARIN SOD 60 MG/0.6 ML SYRINGE SC SCH ×2 (10:30→21:22)
[2021-09-30] MEDS: ZINC SULFATE 220mg CAP or TAB PO SCH (10:32)
[2021-09-30] MEDS ORDERED: PATIENTS OWN MEDICATION (Pregabalin (Lyrica) 1 CAP) PO SCH (14:00)
[2021-09-30] MEDS ORDERED: TIZANIDINE 4 MG PO PRN (14:00)
[2021-09-30] MEDS ORDERED: PATIENTS OWN MEDICATION (Amlodipine Besylate 1 TAB) PO SCH (14:15)
[2021-09-30] MEDS ORDERED: amLODIPine BESYLATE 5 MG TAB PO ONE (14:45)
[2021-09-30] MEDS ORDERED: LISINOPRIL 20 MG TAB PO ONE (15:00)
[2021-09-30] MEDS ORDERED: cefTRIAXone 1GM/50ML D5W 50 ML IV ONE (18:00)
[2021-09-30] MEDS: PREGABALIN 25 MG CAP PO SCH (21:21)
[2021-09-30] MEDS: DICLOFENAC SODIUM TD SCH (21:24)
[2021-09-30] MEDS: ALBUTEROL SULF HFA 90MCG INH 200DOSE IN PRN (21:36)
[2021-10-01 05:00] VITALS: BP 141/78
[2021-10-01] MEDS: PREGABALIN 25 MG CAP PO SCH ×3 (05:11→21:38)
[2021-10-01] MEDS: ALBUTEROL SULF HFA 90MCG INH 200DOSE IN PRN (06:45)
[2021-10-01] MEDS: ASPirin 81 mg TAB PO SCH (08:19)
[2021-10-01] MEDS: ASCORBIC ACID 1,000 MG TAB PO SCH (08:19)
[2021-10-01] MEDS: cefTRIAXone 1GM/50ML D5W 50 ML IV SCH (08:19)
[2021-10-01] MEDS: FAMOTIDINE (10MG/ML) 2ML VL IV SCH ×2 (08:19→21:38)
[2021-10-01] MEDS: ZINC SULFATE 220mg CAP or TAB PO SCH (08:19)
[2021-10-01] MEDS: ENOXAPARIN SOD 60 MG/0.6 ML SYRINGE SC SCH ×2 (08:19→21:39)
[2021-10-01] MEDS: CHOLECALCIFEROL (VITD3) 2,000 UNIT CAP/TAB PO SCH (08:20)
[2021-10-01] MEDS: MULTIPLE VITAMIN TAB PO SCH (08:20)
[2021-10-01] MEDS: FOLIC ACID 1 MG TAB PO SCH (08:20)
[2021-10-01] MEDS: AZITHROMYCIN 250 MG TAB PO SCH (08:20)
[2021-10-01] MEDS: amLODIPine BESYLATE 5 MG TAB PO SCH (08:21)
[2021-10-01] MEDS: HCTZ 25 MG TAB PO SCH (08:22)
[2021-10-01] MEDS ORDERED: PATIENTS OWN MEDICATION (Folic Acid 1 MG) PO SCH (10:00)
[2021-10-01] MEDS ORDERED: LISINOPRIL 20 MG TAB PO SCH (10:00)
[2021-10-01] MEDS ORDERED: PATIENTS OWN MEDICATION (Amlodipine Besylate 1 TAB) PO SCH (10:00)
[2021-10-01] MEDS: LEFLUNOMIDE 20 MG PO SCH (10:00)
[2021-10-01] MEDS: DICLOFENAC SODIUM TD SCH ×2 (10:00→22:00)
[2021-10-01] MEDS ORDERED: PATIENTS OWN MEDICATION (Hydrochlorothiazide 1 CAP) PO SCH (10:00)
[2021-10-01 10:15] VITALS: BP 127/84
[2021-10-01] MEDS: NITROGLYCERIN 0.4 MG SL TAB SL PRN ×2 (12:45→12:51)
[2021-10-01 13:00] VITALS: BP 118/69
[2021-10-01 16:54] VITALS: BP 113/69
[2021-10-01 19:40] VITALS: BP 128/69
[2021-10-01] MEDS: DOXYCYCLINE 100 MG TAB/CAP PO SCH (21:38)
[2021-10-01 21:57] VITALS: BP 128/69
[2021-10-02 05:00] VITALS: BP 125/81
[2021-10-02] MEDS: PREGABALIN 25 MG CAP PO SCH (05:23)
[2021-10-02 09:00] VITALS: BP 133/79
[2021-10-02] MEDS: ALBUTEROL SULF HFA 90MCG INH 200DOSE IN PRN (09:07)
[2021-10-02] MEDS: MULTIPLE VITAMIN TAB PO SCH (09:23)
[2021-10-02] MEDS: FAMOTIDINE (10MG/ML) 2ML VL IV SCH (09:23)
[2021-10-02] MEDS: cefTRIAXone 1GM/50ML D5W 50 ML IV SCH (09:23)
[2021-10-02] MEDS: ENOXAPARIN SOD 60 MG/0.6 ML SYRINGE SC SCH (09:23)
[2021-10-02] MEDS: CHOLECALCIFEROL (VITD3) 2,000 UNIT CAP/TAB PO SCH (09:24)
[2021-10-02] MEDS: ASPirin 81 mg TAB PO SCH (09:24)
[2021-10-02] MEDS: FOLIC ACID 1 MG TAB PO SCH (09:24)
[2021-10-02] MEDS: DOXYCYCLINE 100 MG TAB/CAP PO SCH (09:24)
[2021-10-02] MEDS: ASCORBIC ACID 1,000 MG TAB PO SCH (09:24)
[2021-10-02] MEDS: amLODIPine BESYLATE 5 MG TAB PO SCH (09:25)
[2021-10-02] MEDS: HCTZ 25 MG TAB PO SCH (09:25)
[2021-10-02] MEDS: ZINC SULFATE 220mg CAP or TAB PO SCH (09:33)
[2021-10-02] MEDS: DICLOFENAC SODIUM TD SCH (09:51)
[2021-10-02] MEDS: LEFLUNOMIDE 20 MG PO SCH (09:51)
[2021-10-02] MEDS ORDERED: ERGO1CAP23 PO (11:07)
[2021-10-02] MEDS ORDERED: APIX5TAB PO (11:07)
[2021-10-02] MEDS ORDERED: DOXY-338 PO (11:15)
[2021-10-02 12:00] VITALS: BP 140/75
== END 2021-10-02 13:39 | disposition home or self-care (01) | DRG 177 ==
LOC: EDBD 16:29 → ER 16:29 → TELE 09-29 03:13 → TELE-EAST 09-29 19:13
PROVIDERS: ADMIT Nurse Practitioner Family; ATTEND Internal Medicine
DX: U07.1 COVID-19 (principal); I21.4 Non-ST elevation (NSTEMI) myocardial infarction; J12.82 Pneumonia due to coronavirus disease 2019; J96.01 Acute respiratory failure with hypoxia; I26.99 Other pulmonary embolism without acute cor pulmonale; D68.59 Other primary thrombophilia; N30.00 Acute cystitis without hematuria; D72.819 Decreased white blood cell count, unspecified; I45.9 Conduction disorder, unspecified; R94.31 Abnormal electrocardiogram [ECG] [EKG]; I10 Essential (primary) hypertension; M19.90 Unspecified osteoarthritis, unspecified site
CPT/HCPCS: 36415; 71045; 71046; 71275; 80053; 81001; 82306; 82728; 83036; 83735; 83880; 84439; 84443; 84484; 85025; 85379; 85610; 85730; 86141; 87081; 87426; 93005; 93306; 93970; 94640; 96365; 96375; 97110; 97163; 97530; G0378; J0696; J1100; J3490

== ENCOUNTER → 2021-10-27 | Outpatient (CLI) | payer MEDICARE ==
[~2021-10-27] MED LIST changes: +APIX5TAB PO; +DOXY-338 PO; +ERGO1CAP23 PO; +IOHEXOL 350 MG/ML 100ML IJ ONE
== END | disposition home or self-care (01) ==
LOC: Rad HDHVI 12:26
PROVIDERS: ATTEND Internal Medicine Cardiovascular Disease
DX: R94.4 Abnormal results of kidney function studies (principal)
CPT/HCPCS: 36415; 82565; Q9967

== ENCOUNTER → 2021-10-29 | Outpatient (CLI) | payer MEDICARE ==
[2021-10-29 10:07] VITALS: BP 155/81
[2021-10-29 11:02] VITALS: BP 170/80
== END | disposition home or self-care (01) ==
LOC: Rad HDHVI 10:00
PROVIDERS: ATTEND Internal Medicine Cardiovascular Disease
DX: I26.99 Other pulmonary embolism without acute cor pulmonale (principal); I70.0 Atherosclerosis of aorta; J98.4 Other disorders of lung; I25.10 Atherosclerotic heart disease of native coronary artery without angina pectoris
CPT/HCPCS: 71275; G0463; Q9967

== ENCOUNTER → 2022-05-19 | Outpatient (CLI) | payer MEDICARE, BC ==
[~2022-05-19] MED LIST changes: -IOHEXOL 350 MG/ML 100ML IJ ONE
[2022-05-19 11:46] LABS: Basophils # (auto) 0 10 ^3/uL (0-0.2); Eosinophils # (auto) 0.1 10 ^3/uL (0-0.8); Lymphocytes # (auto) 0.9 10 ^3/uL (0.4-5.4); Monocytes # (auto) 0.3 10 ^3/uL (0-1.3); Neutrophils # (auto) 1.3 10 ^3/uL (1.6-8.6); Neutrophils % (auto) 49.4 % (37.0-80.0)
[2022-05-19 11:48] LABS: Basophils % (auto) 1.4 % (0.0-2.0); Eosinophils % (auto) 2.3 % (0.0-7.0); Hemoglobin 14.1 g/dL (12.2-16.2); Lymphocytes % (auto) 35.5 % (10.0-50.0); Mean Corpuscular Hemoglobin 26.1 pg (28.0-32.0); Mean Corpuscular Hgb Conc. 32.2 g/dL (32.0-36.0); Mean Corpuscular Volume 81.3 fL (80.0-100.0); Monocytes % (auto) 11.4 % (0.0-12.0); Nucleated Red Blood Cells % 0.1 %; Red Blood Cells 5.41 10^6/uL (4.0-5.20); Red Cell Distribution Width 17.5 % (11.8-14.3); White Blood Cell 2.6 10^3/uL (4.4-10.8)
[2022-05-19 12:12] LABS: Calcium 9.8 mg/dL (8.5-10.1); Potassium 3.8 mmol/L (3.5-5.1)
== END | disposition home or self-care (01) ==
LOC: LAB 11:11
DX: R29.898 Other symptoms and signs involving the musculoskeletal system (principal); Z96.642 Presence of left artificial hip joint
CPT/HCPCS: 36415; 80048; 85025

== ENCOUNTER → 2022-07-03 | Outpatient (CLI) | payer MEDICARE, BC | END | disposition home or self-care (01) | LOC: LAB 09:09 | PROVIDERS: ATTEND Nurse Practitioner Family | DX: Z01.812 Encounter for preprocedural laboratory examination (principal); M48.07 Spinal stenosis, lumbosacral region; Z79.899 Other long term (current) drug therapy | CPT/HCPCS: 36415; 80061; 82040; 83036; 85018 ==

== ENCOUNTER → 2022-11-13 | Outpatient (CLI) | payer MEDICARE, BC ==
[2022-11-13 11:57] LABS: Urine Bacteria NONE SEEN /hpf (None Seen); Urine Blood Negative /uL (Negative); Urine Specific Gravity 1.025 (1.001-1.035); Urine WBC 1 /hpf (0 - 5)
[2022-11-13 12:12] LABS: Basophils # (auto) 0 10 ^3/uL (0-0.2); Basophils % (auto) 1.4 % (0.0-2.0); Eosinophils # (auto) 0.1 10 ^3/uL (0-0.8); Eosinophils % (auto) 4.3 % (0.0-7.0); Hematocrit 37.8 % (36.0-46.0); Hemoglobin 12.4 g/dL (12.2-16.2); Lymphocytes # (auto) 1.4 10 ^3/uL (0.4-5.4); Lymphocytes % (auto) 46.1 % (10.0-50.0); Mean Corpuscular Hemoglobin 25.9 pg (28.0-32.0); Mean Corpuscular Hgb Conc. 32.7 g/dL (32.0-36.0); Mean Corpuscular Volume 79.2 fL (80.0-100.0); Monocytes # (auto) 0.3 10 ^3/uL (0-1.3); Monocytes % (auto) 9.5 % (0.0-12.0); Neutrophils # (auto) 1.2 10 ^3/uL (1.6-8.6); Neutrophils % (auto) 38.7 % (37.0-80.0); Nucleated Red Blood Cells % 0.3 %; Red Blood Cells 4.77 10^6/uL (4.0-5.20); Red Cell Distribution Width 19.6 % (11.8-14.3); White Blood Cell 3.1 10^3/uL (4.4-10.8)
[2022-11-13 12:38] LABS: Albumin 3.7 g/dL (3.4-5.0); BUN/Creatinine Ratio 31.9; Bilirubin, Direct 0.1 mg/dL (0-0.2); Bilirubin, Total 0.4 mg/dL (0.2-1.0); Calcium 9.4 mg/dL (8.5-10.1); Total Protein 7.6 g/dL (6.4-8.2)
[2022-11-13 13:50] LABS: Potassium 3.7 mmol/L (3.5-5.1)
== END | disposition home or self-care (01) ==
LOC: LAB 11:35
PROVIDERS: ATTEND Internal Medicine Cardiovascular Disease
DX: E11.9 Type 2 diabetes mellitus without complications (principal); D64.9 Anemia, unspecified; E55.9 Vitamin D deficiency, unspecified; I10 Essential (primary) hypertension; R00.2 Palpitations; R53.1 Weakness; R30.0 Dysuria; D51.3 Other dietary vitamin B12 deficiency anemia
CPT/HCPCS: 36415; 80048; 80061; 80076; 81001; 82306; 84443; 85025

== ENCOUNTER → 2022-11-23 | Outpatient (CLI) | payer MEDICARE, BC | END | disposition home or self-care (01) | LOC: Rad HDHVI 13:03 | PROVIDERS: ATTEND Internal Medicine Cardiovascular Disease | DX: I07.1 Rheumatic tricuspid insufficiency (principal); I10 Essential (primary) hypertension; R06.02 Shortness of breath | CPT/HCPCS: 93306 ==

== ENCOUNTER 2022-12-02 13:04 | Inpatient (IN) | payer MEDICARE, BC ==
[~2022-12-02] VITALS: Ht 162.6 cm; Wt 58.0 kg
[2022-12-02] MEDS ORDERED: SODIUM CHLORIDE 0.9% 500 ML IVB ONE (13:30)
[2022-12-02 14:01] LABS: Basophils # (auto) 0 10 ^3/uL (0-0.2); Eosinophils # (auto) 0.1 10 ^3/uL (0-0.8); Hemoglobin 13.4 g/dL (12.2-16.2); Lymphocytes # (auto) 0.9 10 ^3/uL (0.4-5.4); Monocytes # (auto) 0.2 10 ^3/uL (0-1.3)
[2022-12-02 14:04] LABS: Basophils % (auto) 1.1 % (0.0-2.0); Eosinophils % (auto) 1.6 % (0.0-7.0); Lymphocytes % (auto) 24.2 % (10.0-50.0); Mean Corpuscular Hemoglobin 25.7 pg (28.0-32.0); Mean Corpuscular Hgb Conc. 31.9 g/dL (32.0-36.0); Mean Corpuscular Volume 80.6 fL (80.0-100.0); Neutrophils # (auto) 2.5 10 ^3/uL (1.6-8.6); Neutrophils % (auto) 67.1 % (37.0-80.0); Nucleated Red Blood Cells % 0.3 %; Red Blood Cells 5.22 10^6/uL (4.0-5.20); Red Cell Distribution Width 19.8 % (11.8-14.3); White Blood Cell 3.8 10^3/uL (4.4-10.8)
[2022-12-02 14:06] LABS: Anion Gap 6 (5-15); Blood Urea Nitrogen 39 mg/dL (7-18); Carbon Dioxide 28 mmol/L (21-32); Chloride 111 mmol/L (98-107); Glucose 115 mg/dL (74-106); Magnesium 2.4 mg/dL (1.6-2.6); Potassium 3.6 mmol/L (3.5-5.1); Sodium 145 mmol/L (136-145)
[2022-12-02 14:13] LABS: Alanine Aminotransferase 35 U/L (13-56); Albumin 3.6 g/dL (3.4-5.0); Alkaline Phosphatase 48 U/L (45-117); Aspartate Aminotransferase 27 U/L (15-37); BUN/Creatinine Ratio 37.5; Bilirubin, Total 0.6 mg/dL (0.2-1.0); Blood Alcohol < 3.0 mg/dL (0-5); GFR African American 67 mL/min; GFR Non-African American 55 mL/min; Total Protein 6.9 g/dL (6.4-8.2)
[2022-12-02 16:11] LABS: Urine Bacteria FEW /hpf (None Seen); Urine Blood Negative /uL (Negative); Urine Hyaline Cast FEW /lpf (0 - 2); Urine Mucus FEW (None Seen); Urine Specific Gravity 1.026 (1.001-1.035); Urine WBC 1 /hpf (0 - 5)
[2022-12-02 20:01] LABS: INR 1.61 (0.9-1.15); Partial Thromboplastin Time 26.3 sec (24.6-33.4)
[2022-12-02] MEDS ORDERED: traMADol HCL 50 MG TAB PO PRN (20:45)
[2022-12-02] MEDS ORDERED: MORPHINE SULFATE INJ 2 MG/ml SYRG IV PRN (20:45)
[2022-12-02] MEDS ORDERED: NITROGLYCERIN 0.4 MG SL TAB SL PRN (20:45)
[2022-12-02 21:03] LABS: Cholesterol 175 mg/dL (< 200)
[2022-12-02 21:06] LABS: HDL Cholesterol 60 mg/dL (40-59); LDL Cholesterol 98 mg/dL (< 100); Triglycerides 111 mg/dL (< 150)
[2022-12-02] MEDS: SODIUM CHLORIDE 0.9% 1,000 ML IV SCH (22:05)
[2022-12-03] VITALS (7 sets, daily range): BP systolic 122–164; BP diastolic 67–82
[2022-12-03] MEDS: hydrALAZINE HCL 20 MG/ML VL IV PRN (01:44)
[2022-12-03 05:33] LABS: Basophils # (auto) 0 10 ^3/uL (0-0.2); Basophils % (auto) 1.3 % (0.0-2.0); Eosinophils # (auto) 0.1 10 ^3/uL (0-0.8); Eosinophils % (auto) 3.1 % (0.0-7.0); Monocytes # (auto) 0.3 10 ^3/uL (0-1.3); White Blood Cell 3.2 10^3/uL (4.4-10.8)
[2022-12-03 05:36] LABS: Hematocrit 36.4 % (36.0-46.0); Lymphocytes % (auto) 31.8 % (10.0-50.0); Mean Corpuscular Hemoglobin 26.2 pg (28.0-32.0); Mean Corpuscular Volume 79.4 fL (80.0-100.0); Monocytes % (auto) 9.7 % (0.0-12.0); Neutrophils # (auto) 1.7 10 ^3/uL (1.6-8.6); Neutrophils % (auto) 54.1 % (37.0-80.0); Red Blood Cells 4.58 10^6/uL (4.0-5.20); Red Cell Distribution Width 19.5 % (11.8-14.3)
[2022-12-03 05:48] LABS: Calcium 8.8 mg/dL (8.5-10.1); Potassium 3.3 mmol/L (3.5-5.1)
[2022-12-03 05:51] LABS: Albumin 3.2 g/dL (3.4-5.0)
[2022-12-03 05:54] LABS: Bilirubin, Total 0.5 mg/dL (0.2-1.0); Total Protein 6.2 g/dL (6.4-8.2)
[2022-12-03] MEDS: SODIUM CHLORIDE 0.9% 1,000 ML IV SCH (06:19)
[2022-12-03] MEDS: amLODIPine BESYLATE 5 MG TAB PO SCH (09:49)
[2022-12-03] MEDS: PANTOPRAZOLE 40 MG/10 ML VIAL INJ IV SCH (09:49)
[2022-12-03] MEDS: LISINOPRIL 20 MG TAB PO SCH (09:49)
[2022-12-04 05:00] VITALS: BP 143/72
[2022-12-04 09:00] VITALS: BP 150/75
[2022-12-04] MEDS: amLODIPine BESYLATE 5 MG TAB PO SCH (09:46)
[2022-12-04] MEDS: LISINOPRIL 20 MG TAB PO SCH (09:46)
[2022-12-04] MEDS: PANTOPRAZOLE 40 MG/10 ML VIAL INJ IV SCH (09:46)
[2022-12-04] MEDS: hydrALAZINE HCL 20 MG/ML VL IV PRN (12:17)
[2022-12-04 12:33] VITALS: BP_SYST 159; BP_SYST 173; BP_DIAS 75; BP_DIAS 81
[2022-12-04 13:00] VITALS: BP_SYST 157; BP_SYST 174; BP_DIAS 73; BP_DIAS 79
[2022-12-04 13:20] VITALS: BP 159/75
== END 2022-12-04 14:10 | disposition home health service (06) | DRG 66 ==
LOC: EDBD 13:04 → ER 13:04 → TELE 20:41 → TELE-EAST 23:09
PROVIDERS: ADMIT Registered Nurse; ATTEND Internal Medicine Pulmonary Disease
DX: I61.9 Nontraumatic intracerebral hemorrhage, unspecified (principal); E78.5 Hyperlipidemia, unspecified; E86.0 Dehydration; Z20.822 Contact with and (suspected) exposure to COVID-19; G89.4 Chronic pain syndrome; R55 Syncope and collapse; Z96.653 Presence of artificial knee joint, bilateral; Z90.710 Acquired absence of both cervix and uterus; Z98.1 Arthrodesis status; Z82.5 Family history of asthma and other chronic lower respiratory diseases; Z82.49 Family history of ischemic heart disease and other diseases of the circulatory system; Z80.0 Family history of malignant neoplasm of digestive organs; Z79.01 Long term (current) use of anticoagulants; I15.9 Secondary hypertension, unspecified
CPT/HCPCS: 36415; 70450; 70551; 71045; 80053; 80061; 80320; 81001; 82962; 83036; 83735; 83880; 84443; 85025; 85610; 85730; 87426; 93005; 93886; 95819; 96360; 97110; 97116; 97163; 97530; 99291; C9113; G0378

== ENCOUNTER → 2023-02-01 | Outpatient (CLI) | payer MEDICARE, BC ==
[~2023-02-01] MED LIST changes: -APIX5TAB PO; -DOXY-338 PO
== END | disposition home or self-care (01) ==
LOC: Rad HDHVI 11:45
PROVIDERS: ATTEND Internal Medicine Cardiovascular Disease
DX: I63.9 Cerebral infarction, unspecified (principal)
CPT/HCPCS: 70450

== ENCOUNTER → 2023-07-05 | Outpatient (CLI) | payer MEDICARE, BC ==
[~2023-07-05] MED LIST changes: -ALEN70TA2 PO; +ALEN70TA21 PO; -AMLO-496 PO; +AMLO1TAB23 PO; -DICL1GEL50 TD; +DICL1GEL73 TD; +DOCU-265 PO; -DOCU100C10 PO; +FOLI-119 PO; -FOLI1TAB6 PO; -HYDR12.56 PO; +HYDR12.59 PO; -LISI20TA28 PO; +LISI20TA56 PO
== END | disposition home or self-care (01) ==
LOC: LAB 07:20
PROVIDERS: ATTEND Nurse Practitioner Family
DX: R30.0 Dysuria (principal)
CPT/HCPCS: 87086

== ENCOUNTER → 2023-08-25 | Outpatient (CLI) | payer MEDICARE, BC ==
[2023-08-25 14:14] LABS: Urine Bacteria NONE SEEN /hpf (None Seen); Urine Blood Negative /uL (Negative); Urine Clarity Clear (Clear); Urine Color Yellow (Yellow); Urine Mucus FEW (None Seen); Urine Protein, UAD 1+ (Negative); Urine Specific Gravity 1.025 (1.001-1.035); Urine Urobilinogen Normal (Negative); Urine WBC 1 /hpf (0 - 5)
== END | disposition home or self-care (01) ==
LOC: LAB 14:02
PROVIDERS: ATTEND Nurse Practitioner Family
DX: N39.0 Urinary tract infection, site not specified (principal)
CPT/HCPCS: 81001; 87086

== ENCOUNTER → 2024-11-16 | Outpatient (CLI) | payer MEDICARE, BC ==
[~2024-11-16] VITALS: Ht 162.6 cm; Wt 56.7 kg
[2024-11-16] MEDS: REGADENOSON 0.4 MG/5 ML SYRG IV ONE ×2 (12:28→12:46)
--- NOTE | 2024-11-16 15:02 | DVHSR ---
APPROVED REPORT Exam: Nuclear Stress Test Indication: CHF, HTN BMI: 0 Medical History Medical History: HTN, CHF Allergies: No known drug allergies Stress Test Details Stress Test: Pharmacologic stress testing performed using 0.4 mg of regadenoson per 5 mL given IV ov er 10 seconds. HR Resting HR: 70 bpmMax Heart Rate (APMHR): 144.583192 bpm Max HR Achieved: 81 bpmTarget HR (85% APMHR): 122.148795 bpm % of APMHR: 56.25 Recovery HR: 76 bpm BP Resting BP: 176/86 mmHg Recovery BP: 142/76 mmHg ECG Resting ECG: Sinus Rhythm Clinical Reason for Termination: Completed protocol Nurse Comments Recieved pt. from [facility]. A/Ox4 on RA. Connected to monitoring and evaluation advisor, VS stable. PIV flushes well. Reviewed POC. Pt. verbalized understanding of procedure including risks and side ef fects, agrees for stress testing. Lexiscan stress test performed per protocol. [facility] tech administered Cardiolite. Pt. tolerated well . Pt. stable, no change on exam. VS returned to baseline. Transferred to [facility] via wheelchair w/ te ch. Stress ECG Conclusion lvef 71% normal perfusion scan no stress induced ischemia noted NM EXAM: Myocardial Perfusion REST/STRESS Imaging Protocol: Rest Tc-99m/Stress Tc-99m 1 day Resting Data Rest SPECT myocardial perfusion imaging was performed in supine position 60 minutes following the int ravenous injection of 13.7 mCi of Tc-99m Sestamibi. Time of rest injection: 1050 Time of rest imagin Administration Route: IV Administration Site: Right AC Pharmacologic Stress Pharmacologic stress test was performed by injecting Regadenoson 0.4 mg IV push followed by the intra venous injection of 29.5 mCi of Tc-99m Sestamibi. Time of stress injection: 1241 Time of stress imagin Administration Route: IV Administration Site: Right AC Gated Stress SPECT was performed 60 minutes after stress injection. The images were gated to evaluate regional wall motion and calculate left ventricular ejection fracti on. Stress only was performed in the Supine position. Nuclear Conclusion Nuclear Findings: negative for ischemia Left Ventricular Function: normal lvef 71% normal perfusion scan no stress induced ischemia noted
== END | disposition home or self-care (01) ==
LOC: XYW 09:58
PROVIDERS: ATTEND Specialist
DX: I11.0 Hypertensive heart disease with heart failure (principal); I50.9 Heart failure, unspecified; R06.02 Shortness of breath
CPT/HCPCS: 78452; 93017; A9500; J2785

== ENCOUNTER → 2024-11-21 | Outpatient (CLI) | payer MEDICARE, BC ==
[2024-11-21 09:02] LABS: Basophils # (auto) 0 10 ^3/uL (0-0.2); Eosinophils # (auto) 0.1 10 ^3/uL (0-0.8); Monocytes # (auto) 0.2 10 ^3/uL (0-1.3); White Blood Cell 3.2 10^3/uL (4.4-10.8)
[2024-11-21 09:04] LABS: Eosinophils % (auto) 2.5 % (0.0-7.0); Hematocrit 43.6 % (36.0-46.0); Hemoglobin 14.3 g/dL (12.2-16.2); Lymphocytes % (auto) 31.7 % (10.0-50.0); Mean Corpuscular Hemoglobin 26.1 pg (28.0-32.0); Mean Corpuscular Hgb Conc. 32.8 g/dL (32.0-36.0); Mean Corpuscular Volume 79.5 fL (80.0-100.0); Monocytes % (auto) 7.1 % (0.0-12.0); Neutrophils # (auto) 1.8 10 ^3/uL (1.6-8.6); Neutrophils % (auto) 57.7 % (37.0-80.0); Nucleated Red Blood Cells % 0.2 %; Platelet Count (auto) 191 10^3/uL (140-450); Red Blood Cells 5.48 10^6/uL (4.0-5.20); Red Cell Distribution Width 18.7 % (11.8-14.3)
[2024-11-21 09:32] LABS: Alanine Aminotransferase 17 U/L (7-40); Albumin 4.6 g/dL (3.2-4.8); Anion Gap 7 (5-15); BUN/Creatinine Ratio 17.8 (10.0-20.0); Blood Urea Nitrogen 16 mg/dL (9-23); Calcium 10.1 mg/dL (8.7-10.4); Carbon Dioxide 28 mmol/L (20-31); Chloride 107 mmol/L (98-107); Glucose 103 mg/dL (74-106); Magnesium 2.1 mg/dL (1.6-2.6); Potassium 3.8 mmol/L (3.5-5.1); Sodium 142 mmol/L (136-145); Total Protein 7.2 g/dL (5.7-8.2); Triglycerides 128 mg/dL (< 150)
[2024-11-21 09:33] LABS: Aspartate Aminotransferase 15 U/L (13-40); HDL Cholesterol 57 mg/dL (40-59)
[2024-11-21 09:34] LABS: Bilirubin, Total 0.6 mg/dL (0.2-1.0)
[2024-11-21 09:52] LABS: Cholesterol 211 mg/dL (< 200); LDL Cholesterol 128 mg/dL (< 100)
[2024-11-21 10:15] LABS: Alkaline Phosphatase 40 U/L (46-116)
== END | disposition home or self-care (01) ==
LOC: LAB 08:24
PROVIDERS: ATTEND Specialist
DX: I11.0 Hypertensive heart disease with heart failure (principal); I50.9 Heart failure, unspecified; E11.9 Type 2 diabetes mellitus without complications; E78.5 Hyperlipidemia, unspecified; E03.9 Hypothyroidism, unspecified; D64.9 Anemia, unspecified; E83.40 Disorders of magnesium metabolism, unspecified; R68.89 Other general symptoms and signs
CPT/HCPCS: 36415; 80053; 80061; 83036; 83735; 84443; 85025